=== PATIENT | female | born 1970 | race Caucasian/White ===

== ENCOUNTER 2019-06-10 19:36 | Inpatient (IN) | payer SELFPAY ==
[~2019-06-10] VITALS: Ht 152.4 cm; Wt 54.4 kg
[2019-06-10] MEDS ORDERED: PANTOPRAZOLE 40 MG 10ML VIAL IV ONE (19:39)
[2019-06-10] MEDS ORDERED: ONDANSETRON HCL INJ 2MG/ML 2ML 2 MG/ML VIAL IV ONE (19:39)
[2019-06-10] MEDS ORDERED: MULTIVITAMINS- 12 INJECTION 10 ML, FOLIC ACID MDV 5 MG, THIAMINE HCL INJ 100 MG in SODI... IV ONE (19:45)
[2019-06-10] MEDS ORDERED: SODIUM CHLORIDE 0.9% 1000ML 1,000 ML IV SCH (19:45)
[2019-06-10] MEDS ORDERED: SODIUM CHLORIDE 0.9% 1000ML 1,000 ML ONE (19:50)
[2019-06-10 20:32] LABS: BASOPHILS # (AUTO) 0.1 (0.0-0.1); BASOPHILS % 0.5 % (0.0-1.0); HEMATOCRIT 48.2 % (34.2-44.1); HEMOGLOBIN 16.2 g/dL (12.0-16.0); LYMPHOCYTES # (AUTO) 1.2 (1.0-3.2); LYMPHOCYTES % 5.6 % (18.0-39.1); MEAN CORPUSCULAR HEMOGLOBIN 30.3 pg (28-32); MEAN CORPUSCULAR HGB CONC 33.6 g/dL (31-35); MEAN CORPUSCULAR VOLUME 90.3 fL (81-99); MONOCYTES # (AUTO) 0.8 (0.2-0.8); MONOCYTES % 3.4 % (4.4-11.3); NEUTROPHILS # (AUTO) 19.8 (2.1-6.9); PLATELET COUNT 393 x10e3/uL (140-360); RED BLOOD COUNT 5.34 x10e6/uL (3.6-5.1); RED CELL DISTRIBUTION WIDTH 12.8 % (11.7-14.4)
[2019-06-10] MEDS ORDERED: PROMETHAZINE HCL (IM) 25 MG/ML VIAL ONE (20:42)
[2019-06-10] MEDS ORDERED: PROMETHAZINE 25MG/ NS 50ML (IV) IV ONE (20:45)
[2019-06-10 20:53] LABS: ALBUMIN 4.5 g/dL (3.5-5.0); ALBUMIN/GLOBULIN RATIO 0.9 (0.8-2.0); ANION GAP 40.5 mmol/L (8-16); CALCIUM 10.2 mg/dL (8.4-10.2); CREATININE, SERUM 1.2 mg/dL (0.57-1.11); MAGNESIUM 2.9 MG/DL (1.3-2.1); POTASSIUM 3.5 mmol/L (3.5-5.1)
[2019-06-10 21:11] LABS: INR 0.92; PROTHROMBIN TIME 12.8 seconds (11.9-14.5)
[2019-06-10 21:12] LABS: PARTIAL THROMBOPLASTIN TIME 24.7 seconds (23.8-35.5)
[2019-06-10] MEDS ORDERED: ONDANSETRON HCL INJ 2MG/ML 2ML 2 MG/ML VIAL IV PRN (22:45)
[2019-06-10 23:12] LABS: CLARITY,URINE CLOUDY (CLEAR); COLOR,URINE YELLOW (YELLOW)
[2019-06-10 23:13] LABS: BILIRUBIN,URINE NEGATIVE (NEGATIVE); KETONES,URINE 2+ (NEGATIVE); LEUKOCYTE ESTERASE ,URINE NEGATIVE (NEGATIVE); NITRITE,URINE NEGATIVE (NEGATIVE); PROTEIN,URINE DIPSTICK 2+ (NEGATIVE); URINE UROBILINOGEN 0.2 mg/dL (0.2 - 1)
[2019-06-10 23:25] LABS: BACTERIA,URINE MANY /HPF; EPITHELIAL CELLS,URINE FEW /LPF
[2019-06-11] VITALS (15 sets, daily range): BP systolic 122–140; BP diastolic 62–88
--- NOTE | 2019-06-11 00:11 | Diagnostic Imaging Report ---
EXAM: CT Abdomen and Pelvis WITH contrast INDICATION: lower abd pain, Nausea and vomiting COMPARISON: None. TECHNIQUE: Abdomen and pelvis were scanned utilizing a multidetector helical scanner from the lung base to the pubic symphysis after administration of IV contrast. Coronal and sagittal reformations were obtained. Routine protocol was performed. Scan was performed when during portal venous phase. IV CONTRAST: 100 mL of Isovue 370 ORAL CONTRAST: None COMPLICATIONS: None RADIATION DOSE: Total DLP: 176 mGy*cm Estimated effective dose: (DLP x 0.015 x size factor) mSv CTDIvol has been reviewed. It is below the limits set by the Radiation Protocol Committee (RPC). Dose modulation, iterative reconstruction, and/or weight based adjustment of the mA/kV was utilized to reduce the radiation dose to as low as reasonably achievable. FINDINGS: LINES and TUBES: None. LOWER THORAX: Unremarkable HEPATOBILIARY: The liver is diffuse hypodense compared to the spleen, consistent with diffuse hepatic steatosis. No focal hepatic lesions. No biliary ductal dilation. GALLBLADDER: No radio-opaque stones or sludge. No wall thickening. SPLEEN: No splenomegaly. PANCREAS: No focal masses or ductal dilatation. ADRENALS: No adrenal nodules KIDNEYS/URETERS: Kidneys enhance symmetrically. No hydronephrosis. No cystic or solid mass lesions. No stones. GI TRACT: Mild distal esophageal wall thickening. No abnormal distention, wall thickening, or evidence of bowel obstruction. There are diverticula within the colon without evidence of diverticulitis. Appendix is normal. PELVIC ORGANS/BLADDER: The uterus is absent. No adnexal masses. Follicles in the ovaries. LYMPH NODES: No lymphadenopathy. VESSELS: Unremarkable. PERITONEUM / RETROPERITONEUM: No free air or fluid. BONES: Unremarkable. SOFT TISSUES: Unremarkable. IMPRESSION: 1. No acute CT abnormalities in the abdomen or pelvis. 2. Hepatic steatosis. 3. Colonic diverticulosis without diverticulitis. Signed by: Adrien Jenkins DO on 06/11/2019 12:08 AM
[2019-06-11] MEDS ORDERED: PROMETHAZINE 25MG/SOD CHL 0.9% 50 ML ONE (00:55)
[2019-06-11] MEDS: SODIUM CHLORIDE 0.9% 1000ML 1,000 ML IV SCH ×3 (01:01→14:37)
[2019-06-11] MEDS: CHLORDIAZEPOXIDE HCL 25 MG CAP PO SCH ×4 (01:01→17:03)
[2019-06-11] MEDS ORDERED: PROMETHAZINE 25MG/ NS 50ML (IV) IV ONE (01:15)
[2019-06-11] MEDS ORDERED: LISINOPRIL10 MG PO (01:41)
[2019-06-11] MEDS ORDERED: SODIUM CHLORIDE 0.9% 50ML 50 ML ONE (03:34)
[2019-06-11] MEDS ORDERED: IOPAMIDOL 370 MG/ML 200 ML INFUS..BTL INJ ONE (03:34)
[2019-06-11 05:27] LABS: BASOPHILS # (AUTO) 0.1 (0.0-0.1); BASOPHILS % 0.3 % (0.0-1.0); HEMATOCRIT 36.1 % (34.2-44.1); LYMPHOCYTES # (AUTO) 2.2 (1.0-3.2); MEAN CORPUSCULAR HEMOGLOBIN 29.6 pg (28-32); MEAN CORPUSCULAR HGB CONC 32.7 g/dL (31-35); MEAN CORPUSCULAR VOLUME 90.7 fL (81-99); MONOCYTES # (AUTO) 1.4 (0.2-0.8); MONOCYTES % 9.5 % (4.4-11.3); NEUTROPHILS # (AUTO) 10.8 (2.1-6.9); NEUTROPHILS % 74.8 % (38.7-80.0); PLATELET COUNT 268 x10e3/uL (140-360); RED BLOOD COUNT 3.98 x10e6/uL (3.6-5.1); RED CELL DISTRIBUTION WIDTH 12.8 % (11.7-14.4)
[2019-06-11 05:31] LABS: HEMOGLOBIN 11.8 g/dL (12.0-16.0)
[2019-06-11 05:54] LABS: ALANINE AMINOTRANSFERASE 16 IU/L (0-55); ALBUMIN 3.4 g/dL (3.5-5.0); ALBUMIN/GLOBULIN RATIO 1.1 (0.8-2.0); ALKALINE PHOSPHATASE 66 IU/L (40-150); ANION GAP 17.1 mmol/L (8-16); BLOOD UREA NITROGEN 12 mg/dL (7-26); BUN/CREATININE RATIO 16 (6-25); CALCIUM 8.4 mg/dL (8.4-10.2); CARBON DIOXIDE 27 mmol/L (22-29); CHLORIDE 99 mmol/L (98-107); CREATININE, SERUM 0.77 mg/dL (0.57-1.11); EST GLOMERULAR FILTRATION RATE > 60 ML/MIN (60-); GLUCOSE 98 mg/dL (74-118); POTASSIUM 4.1 mmol/L (3.5-5.1); SODIUM 139 mmol/L (136-145)
[2019-06-11 06:22] LABS: AMYLASE 393 U/L (25-125); LIPASE 11 U/L (8-78)
[2019-06-11] MEDS ORDERED: ONDANSETRON HCL INJ 2MG/ML 2ML 2 MG/ML VIAL IV PRN ×2 (06:45→07:15)
[2019-06-11] MEDS ORDERED: ZOLPIDEM TARTRATE 10 MG TAB PO PRN (07:00)
[2019-06-11] MEDS ORDERED: ACETAMINOPHEN 325 MG TAB PO PRN (07:15)
[2019-06-11] MEDS ORDERED: LORAZEPAM INJ 2 MG/ML VIAL IV PRN (07:15)
[2019-06-11] MEDS ORDERED: HYDRALAZINE HCL 20 MG/ML VIAL IV PRN (07:15)
[2019-06-11] MEDS ORDERED: LORAZEPAM INJ 2 MG/ML VIAL IV ONE (07:30)
[2019-06-11] MEDS: PIPER-TAZ 3.375 GM 50 ML IV SCH ×3 (08:01→20:41)
[2019-06-11] MEDS: PANTOPRAZOLE 40 MG 10ML VIAL IV SCH (08:01)
[2019-06-11] MEDS: LISINOPRIL 10 MG TAB PO SCH (08:01)
--- NOTE | 2019-06-11 08:35 | Diagnostic Imaging Report ---
Chest, portable AP view History: Leukocytosis Comparison: No comparisons available for review IMPRESSION: The heart is within normal limits size. The mediastinal and hilar contours are unremarkable. Left basilar atelectasis is present. No focal consolidation, pleural effusion, or pneumothorax. Signed by: Glenn Salazar MD on 06/11/2019 8:32 AM
--- NOTE | 2019-06-11 11:30 | NUR ---
Pt had poor appetite, but tolerating some clear liquids at this time. Orders given by Nayana BUENROSTRO to transfer to medical surgical floor with telemetry. Patient transferred to room 205. Upon transfer patient, pt complained of "acid reflux pain" and requesting stronger medication than Pepcid. Muna FORD assuming care notified of patient's complaint.
--- NOTE | 2019-06-11 11:45 | NUR ---
RCD PT FROM ICU BY BED PT IS ALERT AND ORIENTED VITALS CHECKED PT RESTING ON BED ,BED LOW AND LOCKED CALL LIGHT IN REACH
--- NOTE | 2019-06-11 13:45 | Consultation ---
DATE OF CONSULTATION: Pulmonary Critical Care Consultation CHIEF COMPLAINT: Vomiting, dehydration and acidosis. HISTORY OF PRESENT ILLNESS: The patient is a 49-year-old woman. She came in with some abdominal pain and vomiting. She reported drinking a large quantity of wine over the past several days. She also reports drinking on a chronic basis. She denies and ulcers or prior gastrointestinal problems. She does not complain of fever. PAST SURGICAL HISTORY: Status post hysterectomy. PAST MEDICAL HISTORY: 1. Hypertension. 2. No prior history of gastrointestinal disease. SOCIAL HISTORY: The patient is a daily drinker. FAMILY HISTORY: Family history is noncontributory. ALLERGIES: THERE ARE NO KNOWN DRUG ALLERGIES. REVIEW OF SYSTEMS: The patient has no fever. She has no headache. She is not complaining of any neck pain. She has no chest pain. She has no difficulty breathing. She has no cough. She does have some abdominal pain. She did have some vomiting, although this has subsided. She has no leg edema. She has no focal neurological complaints. PHYSICAL EXAMINATION: VITAL SIGNS: The patient is afebrile. The blood pressure is 138/83 and the saturation is 97%. The respiratory rate is 16 and the pulse is 108. HEENT: Shows no facial swelling or erythema. CARDIAC: Reveals regular rate and rhythm with normal S1, S2. There are no murmurs or rubs. LUNGS: Auscultation of lungs reveals clear breath sounds bilaterally. There is no wheezing. ABDOMEN: Soft. There is some mild epigastric tenderness. There is no rebound or guarding. EXTREMITIES: Show no leg edema or calf tenderness. NEUROLOGIC: Shows no focal neurological abnormalities. RADIOGRAPHIC DATA: CT scan of the abdomen shows no acute changes. There is some diverticulosis. She also has some hepatic steatosis. LABORATORY DATA: The electrolytes on admission showed a BUN to creatinine ratio of 16 to 1.2 with a carbon dioxide of 15 and a chloride of 87. The patient had an anion gap of 23. This has improved. Her white blood cell count has decreased from 22 to 14.4 and her hemoglobin has decreased from 16.2 to 11.8. The platelet count is 268. Coagulations parameters are normal. The urinalysis shows a pH of 5.5 with a specific gravity of 1.030. There are 10 to 20 white blood cells. IMPRESSION: 1. Alcoholic ketoacidosis. 2. Acute kidney injury. 3. Leukocytosis. 4. Chronic alcoholism. PLAN: 1. Continue IV hydration. 2. Replete thiamine and B12 folic acid. 3. Librium for delirium tremens prophylaxis. 4. Probable transfer to the medical [facility] today. MD TORREY Burks/KATHERIN /[id number]
--- NOTE | 2019-06-11 13:55 | Diagnostic Imaging Report ---
EXAM: US ABDOMEN COMPLETE INDICATION: Vomiting, elevated amylase. COMPARISON: CT abdomen/pelvis 06/10/2019. TECHNIQUE: Transverse and longitudinal lyles scale and color doppler sonographic images of the abdomen were obtained. FINDINGS: LIVER 14.6 cm in the right midclavicular line. Increased echogenicity of the liver with normal contour, no masses. SPLEEN 8.3 cm in maximum diameter. Normal echogenicity, no masses. GALLBLADDER No gallbladder wall thickening, distension, stone, or pericholecystic fluid. Negative reported sonographic Navarrete's sign. BILE DUCTS No intra nor extra-hepatic biliary dilation. Common bile duct measures 0.2 cm PANCREAS: Visualized portions are unremarkable. RIGHT KIDNEY: 10.9 cm Echogenicity: Normal Collecting System: No hydronephrosis Stones: None Cyst/Mass: None LEFT KIDNEY: 9.3 cm Echogenicity: Normal Collecting System: No hydronephrosis Stones: None Cyst/Mass: None VESSELS: Aorta: Visualized portions are within normal size limits Inferior Vena Cava: Visualized portions are normal Main Portal Vein: 0.8 cm, normal size with hepatopetal flow. FREE FLUID: None IMPRESSION: Hepatic steatosis. Signed by: Dr. Adrián Houston MD on 06/11/2019 1:51 PM
--- NOTE | 2019-06-11 17:14 | NUR ---
GAVE PACKET OF INFORMATION WITH [facility] [employer] FOR ASSISTANCE WITH LOW TO NO INCOME TO PATIENT. RESOURCES THAT PATIENT MAY BE ABLE TO FOLLOW UP UPON DISCHARGE. PT EDUCATED ON EACH RESOURCE AND UNDERSTANDING HOW TO FOLLOW UP TO SEE IF QUALIFIED FOR EACH RESOURCE.
--- NOTE | 2019-06-11 18:41 | NUR ---
PT RESTING ON BED BED SIDE REPORT GIVEN TO ONCOMING NURSE
[2019-06-12 00:21] VITALS: BP 141/77
[2019-06-12] MEDS: CHLORDIAZEPOXIDE HCL 25 MG CAP PO SCH ×3 (00:31→12:00)
[2019-06-12] MEDS: SODIUM CHLORIDE 0.9% 1000ML 1,000 ML IV SCH ×3 (00:31→14:37)
[2019-06-12] MEDS: PIPER-TAZ 3.375 GM 50 ML IV SCH ×3 (02:17→14:00)
[2019-06-12 05:13] LABS: BASOPHILS # (AUTO) 0.1 (0.0-0.1); BASOPHILS % 0.6 % (0.0-1.0); EOSINOPHILS % 0.4 % (0.0-6.0); HEMATOCRIT 34.8 % (34.2-44.1); HEMOGLOBIN 11.5 g/dL (12.0-16.0); LYMPHOCYTES # (AUTO) 1.6 (1.0-3.2); LYMPHOCYTES % 19.8 % (18.0-39.1); MEAN CORPUSCULAR HEMOGLOBIN 30.3 pg (28-32); MEAN CORPUSCULAR VOLUME 91.8 fL (81-99); MONOCYTES # (AUTO) 0.6 (0.2-0.8); MONOCYTES % 7.1 % (4.4-11.3); NEUTROPHILS # (AUTO) 5.8 (2.1-6.9); PLATELET COUNT 210 x10e3/uL (140-360); RED BLOOD COUNT 3.79 x10e6/uL (3.6-5.1); RED CELL DISTRIBUTION WIDTH 12.6 % (11.7-14.4)
[2019-06-12 05:37] LABS: ALANINE AMINOTRANSFERASE 14 IU/L (0-55); ALBUMIN 2.9 g/dL (3.5-5.0); ALKALINE PHOSPHATASE 58 IU/L (40-150); AMYLASE 119 U/L (25-125); BLOOD UREA NITROGEN 5 mg/dL (7-26); BUN/CREATININE RATIO 7 (6-25); CALCIUM 8.6 mg/dL (8.4-10.2); CARBON DIOXIDE 27 mmol/L (22-29); CHLORIDE 100 mmol/L (98-107); CREATININE, SERUM 0.67 mg/dL (0.57-1.11); EST GLOMERULAR FILTRATION RATE > 60 ML/MIN (60-); GLUCOSE 86 mg/dL (74-118); MAGNESIUM 1.9 MG/DL (1.3-2.1); SODIUM 138 mmol/L (136-145)
[2019-06-12] MEDS ORDERED: CHLORDIAZEPOXID25 MG PO (05:51)
[2019-06-12] MEDS ORDERED: PANTOPRAZOLE SO40 MG PO (05:51)
[2019-06-12] MEDS ORDERED: ZOFRAN4 MG PO (05:51)
[2019-06-12 06:00] VITALS: BP 140/78
[2019-06-12 06:09] LABS: ANION GAP 14.3 mmol/L (8-16); POTASSIUM 3.3 mmol/L (3.5-5.1)
[2019-06-12] MEDS ORDERED: POTASSIUM CHLORIDE 20 MEQ TAB CR PO STA (06:18)
--- NOTE | 2019-06-12 07:00 | NUR ---
RCD PT AT BED PT IS ALERT AND ORIENTED PT RESTING ON BED IV PATENT BY SALINE FLUSH BED LOW AND LOCKED CALL LIGHT IN REACH
[2019-06-12 08:17] VITALS: BP 154/82
[2019-06-12] MEDS: PANTOPRAZOLE 40 MG 10ML VIAL IV SCH (08:54)
[2019-06-12] MEDS: LISINOPRIL 10 MG TAB PO SCH (08:55)
[2019-06-12] MEDS ORDERED: THIAMINE HCL INJ 100 MG in SODIUM CHLORIDE 0.9% 50ML 50 ML IV SCH (09:00)
[2019-06-12] MEDS ORDERED: FOLIC ACID 1 MG TAB PO SCH (09:00)
[2019-06-12 10:00] VITALS: BP 154/82
[2019-06-12 12:16] VITALS: BP 166/81
--- NOTE | 2019-06-12 12:30 | NUR ---
AC TO [facility] BUENROSTRO PAGED TO DR BUSTAMANTE TO GET THE DISCHARGE APPROVAL
--- NOTE | 2019-06-12 13:25 | Diagnostic Imaging Report ---
Hepatobiliary Scan with Gallbladder Ejection Fraction Clinical information: Nausea and vomiting Technique: Following intravenous administration of 5.8 millicuries of Tc-99m mebrofenin, dynamic images of the abdomen in the anterior projection were obtained through 30 minutes. Sincalide (CCK analog) 1.1 micrograms was administered intravenously over 30 minutes with additional imaging for determination of gallbladder ejection fraction. Discussion: Perfusion of the liver is normal. Extraction of tracer by the liver parenchyma is normal. Tracer appears promptly within the biliary tract. The gallbladder begins to fill by 5 minutes post injection of tracer and fills adequately. Tracer is seen in the small bowel by 10 minutes. The gallbladder ejection fraction with sincalide is 36% (normal greater than 40%). Impression: 1. Filling of the gallbladder excludes acute cystic duct obstruction/acute cholecystitis. 2. The decreased gallbladder ejection fraction of 36% supports the clinical diagnosis of chronic cholecystitis/gallbladder dyskinesia. Signed by: Dr. Chiqui Pagan M.D. on 06/12/2019 1:21 PM
--- NOTE | 2019-06-12 14:30 | NUR ---
PAGED DR BUSTAMANTE AGAIN AND TALKED REGARDING DISCHARGE GOT THE DISCHARGE APPROVAL
--- NOTE | 2019-06-12 14:35 | NUR ---
PAGED AND TALKED ANNE-MARIE DR DIANNA PRASAD TO DC THE PT GOT THE DISCHARGE ORDER
--- NOTE | 2019-06-12 15:06 | NUR ---
PATIENT WENT HOME IN SAFE CONDITION WITH HER DAUGHTER
--- NOTE | 2019-06-14 01:30 | Discharge Summary ---
ADMISSION DIAGNOSES: EtOH abuse with intoxication, hypertension, anxiety, acute kidney injury, urinary tract infection, present on admission. DISCHARGE DIAGNOSES: EtOH abuse with intoxication, hypertension, anxiety, acute kidney injury, urinary tract infection, present on admission, rule out urinary tract infection. HISTORY: Hypertension, anxiety, EtOH abuse. SURGICAL HISTORY: Hysterectomy. FAMILY HISTORY: The patient's father and mother had diabetes. The patient's mother and father had a stroke. SOCIAL HISTORY: The patient admits to alcohol use. HOSPITAL COURSE: A 49-year-old female admits with complaints of epigastric abdominal pain, vomiting, and palpitations that began last night after drinking 2 bottles of Chardonnay. She admits with a history of alcohol abuse and so she quit for 1 month prior to beginning to drink 3 days ago again. She denies fever and diarrhea. On admission, her alcohol level was 194.6. She was started on Librium, lorazepam, given a banana bag, and admitted to the ICU. CT of the abdomen and pelvis showed no acute abnormality. Hepatic steatosis. Ultrasound of the abdomen showed hepatic steatosis. The patient continue to have nausea and vomiting, so a HIDA scan was ordered, which was negative. By the second day, the patient is tolerating diet and ready for discharge. She will discharge home with a prescription for Librium, Zofran, and Protonix. She will continue her home lisinopril. The patient understands discharge instructions and agrees to plan. Vital signs stable, the patient afebrile. Dictated by Nayana Gomez NP MD TIMBO Mcbride/MODL /[id number]
--- OUTSIDE RECORDS SUMMARY | 2019-06-18 11:33 | XMS REPORT ---
Author [facility] Address Unknown Phone Unavailable Care Team Providers Care Servicer [employer] Name Role Phone JANIE DONG Unavailable Unavailable Payers Payer Name Policy Type Policy Number Effective Date Expiration Date Problems This patient has no known problems. Allergies, Adverse Reactions, Alerts Allergy Name Allergy Type Status Severity Reaction(s) Onset Date Inactive Date Treating Clinician Comments No Known Allergies DA Active U 2018-07-28 00:00:00 No Known Allergies DA Active U 2018-04-01 00:00:00 No Known Allergies DA Active U 2017-01-08 00:00:00 No Known Allergies DA Active U 2013-12-03 00:00:00 Medications This patient has no known medications. Results Test Description Test Time Test Comments Text Results Atomic Results Result Comments HEPTOBILIARY W PHARM 2019-06-12 13:19:00 [facility] [address] [address] Patient Name: HAMMAD ELIZABETH MR #: [id number] : 1970 Age/Sex: 49/F Req #: [id number] Adm Physician: JANIE DONG MD Ordered by: Anne-Marie Cleveland ENVIRONMENTAL SOLUTIONS ENGINEER Report #: [id number] Location: MED/SURG2 Room/Bed: [facility] Procedure: [id number] NM/HEPTOBILIARY W PHARM Exam Date: 06/12/19 Exam Time: 929 REPORT STATUS: Signed Hepatobiliary Scan with Gallbladder Ejection Fraction Clinical information: Nausea and vomiting Technique: Following intravenous administration of 5.8 millicuries of Tc-99m mebrofenin, dynamic images of the abdomen in the anterior projection were obtained through 30 minutes. Sincalide (CCK analog) 1.1 micrograms was administered intravenously over 30 minutes with additional imaging for determination of gallbladder ejection fraction. Discussion: Perfusion of the liver is normal. Extraction of tracer by the liver parenchyma is normal. Tracer appears promptly within the biliary tract. The gallbladder begins to fill by 5 minut es post injection of tracer and fills adequately. Tracer is seen in the small bowel by 10 minutes. The gallbladder ejection fraction with sincalide is 36% (normal greater than 40%). Impression: 1. Filling of the gallbladder excludes acute cystic duct obstruction/acute cholecystitis. 2. The decreased gallbladder ejection fraction of 36% supports the clinical diagnosis of chronic cholecystitis/gallbladder dyskinesia. Signed by: Dr. Evelin Pagan M.D. on 06/12/2019 1:21 PM Dictated By: EVELIN PAGAN MD 1321 Transcribed By: DB on 06/12/19 1321 COPY TO: ANNE-MARIE C[place]AND ENVIRONMENTAL SOLUTIONS ENGINEER US ABDOMEN COMPLETE 2019-06-11 13:48:[address] [address] Patient Name: HAMMAD ELIZABETH MR #: [id number] : 1970 Age/Sex: 49/F Req #: [id number] Adm Physician: JANIE DONG MD Ordered by: OSMANY BUSTAMANTE MD Report #: [id number] Location: MED/SURG2 Room/Bed: [facility] Procedure: [id number] US/US ABDOMEN COMPLETE Exam Date: 06/11/19 Exam Time: 1244 REPORT STATUS: Signed EXAM: US ABDOMEN COMPLETE INDICATION: Vomiting, elevated amylase. COMPARISON: CT abdomen/pelvis 06/10/2019. TECHNIQUE: Transverse and longitudinal lyles scale and color doppler sonographic images of the abdomen were obtained. FINDINGS: LIVER 14.6 cm in the right midclavicular line. Increased echogenicity of the liver with normal contour, no masses. SPLEEN 8.3 cm in maximum diameter. Normal echogenicity, no masses. GALLBLADDER No gallbladder wall thickening, distension, stone, or pericholecystic fluid. Negative reported sonographic Navarrete's sign. BILE DUCTS No intra nor extra-hepatic biliary dilation. Common bile duct measures 0.2 cm PANCREAS: Visualized portions are unremarkable. RIGHT KIDNEY: 10.9 cm Echogenicity: Normal Collecting System: No hydronephrosis Stones: None Cyst/Mass: None LEFT KIDNEY: 9.3 cm Echogenicity: Normal Collecting System: No hydronephrosis Stones: None Cyst/Mass: None VESSELS: Aorta: Visualized portions are within normal size limits Inferior Vena Cava: Visualized portions are normal Main Portal Vein: 0.8 cm, normal size with hepatopetal flow. FREE FLUID: None IMPRESSION: Hepatic steatosis. Signed by: Dr. Oren Huber MD on 06/11/2019 1:51 PM Dictated By: OREN HUBER MD 1356 Transcribed By: DB on 06/11/19 1351 COPY TO: OSMANY BUSTAMANTE MD CHEST SINGLE (PORTABLE) 2019-06-11 08:31:00 [address] [address] Patient Name: HAMMAD ELIZABETH MR #: [id number] : 1970 Age/Sex: 49/F Req #: [id number] Adm Physician: JANIE DONG MD Ordered by: OSMANY BUSTAMANTE MD Report #: [id number] Location: ICU Room/Bed: [place] [address] Procedure: [id number] DX/CHEST SINGLE (PORTABLE) Exam Date: 06/11/19 Exam Time: 809 REPORT STATUS: Signed Chest, portable AP view History: Leukocytosis Comparison: No comparisons available for review IMPRESSION: The heart is within normal limits size. The mediastinal and hilar contours are unremarkable. Left basilar atelectasis is present. No focal consolidation, pleural effusion, or pneumothorax. Signed by: Glenn Archuleta MD on 06/11/2019 8:32 AM Dictated By: GLENN ARCHULETA MD 1 Transcribed By: DB on 06/11/19831 COPY TO: OSMANY BUSTAMANTE MD CT ABDOMEN/PELVIS W 2019-06-11 00:05:00 [address] [address] Patient Name: HAMMAD ELIZABETH MR #: [id number] : 1970 Age/Sex: 49/F Req #: [id number] Adm Physician: JANIE DONG MD Ordered by: JOLYNN MANUEL ENVIRONMENTAL SOLUTIONS ENGINEER Report #: [id number] Location: [facility] Room/Bed: [address] [place] [address] Procedure: [id number] CT/CT ABDOMEN/PELVIS W Exam Date: 06/10/19 Exam Time: 7 REPORT STATUS: Signed EXAM: CT Abdomen and Pelvis WITH contrast INDICATIO N: lower abd pain, Nausea and vomiting COMPARISON: None. TECHNIQUE: Abdomen and pelvis were scanned utilizing a multidetector helical scanner from the lung base to the pubic symphysis after administration of IV contrast. Coronal and sagittal reformations were obtained. Routine protocol was performed. Scan was performed when during portal venous phase. IV CONTRAST: 100 mL of Isovue 370 ORAL CONTRAST: None COMPLICATIONS: None RADIATION DOSE: Total DLP: 176 mGy*cm Estimated effective dose: (DLP x 0.015 x size factor) mSv CTDIvol has been reviewed. It is below the limits set by the Radiation Protocol Committee (RPC). Dose modulation, iterative reconstruction, and/or weight based adjustment of the mA/kV was utilized to reduce the radiation dose to as low as reasonably achievable. FINDINGS: LINES and TUBES: None. LOWER THORAX: Unremarkable HEPATOBILIARY: The liver is diffuse hypodense compare d to the spleen, consistent with diffuse hepatic steatosis. No focal hepatic lesions. No biliary ductal dilation. GALLBLADDER: No radio-opaque stones or sludge. No wall thickening. SPLEEN: No splenomegaly. PANCREAS: No focal masses or ductal dilatation. ADRENALS: No adrenal nodules KIDNEYS/URETERS: Kidneys enhance symmetrically. No hydronephrosis. No cystic or solid mass lesions. No stones. GI TRACT: Mild distal esophageal wall thickening. No abnormal distention, wall thickening, or evidence of bowel obstruction. There are diverticula within the colon without evidence of diverticulitis. Appendix is normal. PELVIC ORGANS/BLADDER: The uterus is absent. No adnexal masses. Follicles in the ovaries. LYMPH NODES: No lymphadenopathy. VESSELS: Unremarkable. PERITONEUM / RETROPERITONEUM: No free air or fluid. BONES: Unremarkable. SOFT TISSUES: Unremarkable. IMPRESSION: 1. No acute CT abnormalities in the abdomen or pelvis. 2. Hepatic steatosis. 3. Colonic diverticulosis without diverticulitis. Signed by: Adrien Jenkins DO on 06/11/2019 12:08 AM Dictated By: ADRIEN JENKINS DO Transcribed By: DB on 06/11/197 COPY TO: JOLYNN MANUEL NP THYROID PROFILE W/TSH 2018-07-30 07:55:00 T3 UPTAKE (test code=T3UP) 34.0 % 30.0-40.0 T4 (THYROXINE) (test code=T4) 9.8 ug/dL 4.5-13.9 T7 (FREE THYROXINE INDEX) (test code=T7) 3.33 FTI 1.3-5.1 THYROID STIMULATING HORMONE (test code=TSH) 1.170 uIU/mL 0.36-3.74 TSH REFERENCE RANGES: EUTHYROID: 0.35 - 4.3 mIU/mL HYPO : > 5.5 mIU/mL HYPER : < 0.35 mIU/mL T4 [id number] 07:55:00* Test Item Value Reference Range Comments T4 FREE (test code=T4F) 1.16 ng/dL 0.76-1.46 BASIC METABOLIC [id number] 07:10:00* Test Item Value Reference Range Comments SODIUM (test code=NA) 140 mmol/L 136-145 POTASSIUM (test code=K) 3.7 mmol/L 3.5-5.1 CHLORIDE (test code=CL) 103.0 mmol/L 98-107 CARBON DIOXIDE (test code=CO2) 30.0 mmol/L 21-32 ANION GAP (test code=GAP) 10.7 10-20 GLUCOSE (test code=GLU) 104 mg/dL 74-106 BLOOD UREA NITROGEN (test code=BUN) 4 mg/dL 7-18 GLOMERULAR FILTRATION RATE (test code=GFR) > 60 mL/min >=60 Estimated GFR by using Modified MDRD formula.Chronic kidney disease is defined as either kidney damageor GFR <60 mL/min/1.73 m2 for >3 months. CREATININE (test code=CREAT) 0.40 mg/dL 0.55-1.02 Note change in reference range due to change in reagent. BUN/CREATININE RATIO (test code=BUN/CREA) 10.0 10-20 CALCIUM (test code=CA) 8.6 mg/dL 8.5-10.1 HEPATIC FUNCTION [id number] 07:10:00* Test Item Value Reference Range Comments TOTAL PROTEIN (test code=PROT) 6.3 gram/dL 6.4-8.2 ALBUMIN (test code=ALB) 3.1 g/dL 3.4-5.0 GLOBULIN (test code=GLOB) 3.2 gram/dL 2.7-4.2 ALBUMIN/GLOBULIN RATIO (test code=A/G) 1.0 0.75-1.50 BILIRUBIN TOTAL (test code=BILT) 0.60 mg/dL 0.0-1.0 BILIRUBIN DIRECT (test code=BILD) 0.16 mg/dL 0.0-0.20 SGOT/AST (test code=AST) 16 IUnit/L 15-37 SGPT/ALT (test code=ALT) 17 IUnit/L 12-78 ALKALINE PHOSPHATASE TOTAL (test code=ALKP) 62 IUnit/L 45-117 Note change in reference range due to change in reagent. [id number] 07:10:00* Test Item Value Reference Range Comments PHOSPHORUS (test code=PHOS) 3.1 mg/dL 2.5-4.9 [id number] 07:10:00* Test Item Value Reference Range Comments MAGNESIUM (test code=MAG) 1.8 mg/dL 1.8-2.4 [id number] 07:10:00* Test Item Value Reference Range Comments ACETAMINOPHEN (test code=ACET) < 10 mcg/mL 10-30 A RANGE OF 10-30 mcg/mL IS A THERAPEUTIC RANGE. TOXIC CONCENTRATIONS: >150 mcg/mL AT 4 HOURS AFTER INGESTION >=50 mcg/mL AT 12 HOURS AFTER INGESTION CBC W/AUTO [id number] 07:02:00* Test Item Value Reference Range Comments WHITE BLOOD CELL (test code=WBC) 6.2 K/mm3 4.5-12.5 RED BLOOD CELL (test code=RBC) 4.08 mill/mm3 3.7-5.2 HEMOGLOBIN (test code=HGB) 12.1 gram/dL 11.5-15.5 HEMATOCRIT (test code=HCT) 38.1 % 36.0-46.0 MEAN CELL VOLUME (test code=MCV) 93.4 fL 80-98 MEAN CELL HGB (test code=MCH) 29.7 picogram 27.0-33.0 MEAN CELL HGB CONCETRATION (test code=MCHC) 31.8 gram/dL 33.0-36.0 RED CELL DISTRIBUTION WIDTH (test code=RDW) 12.5 % 11.6-16.2 RED CELL DISTRIBUTION WIDTH SD (test code=RDW-SD) 43.2 fL 37.0-51.0 PLATELET COUNT (test code=PLT) 223 K/mm3 150-450 MEAN PLATELET VOLUME (test code=MPV) 9.6 fL 6.7-11.0 NEUTROPHIL % (test code=NT%) 56.0 % 39.0-69.0 IMMATURE GRANULOCYTE % (test code=IG%) 0.2 % 0.0-5.0 LYMPHOCYTE % (test code=LY%) 31.5 % 25.0-55.0 MONOCYTE % (test code=MO%) 8.6 % 0.0-10.0 EOSINOPHIL % (test code=EO%) 2.6 % 0.0-5.0 BASOPHIL % (test code=BA%) 1.1 % 0.0-1.0 NUCLEATED RBC % (test code=NRBC%) 0.0 % 0-0 NEUTROPHIL # (test code=NT#) 3.45 K/mm3 1.8-7.7 IMMATURE GRANULOCYTE # (test code=IG#) 0.01 x10 3/uL 0-0.03 LYMPHOCYTE # (test code=LY#) 1.94 K/mm3 1.0-5.0 MONOCYTE # (test code=MO#) 0.53 K/mm3 0-0.8 EOSINOPHIL # (test code=EO#) 0.16 K/mm3 0.0-0.5 BASOPHIL # (test code=BA#) 0.07 K/mm3 0.0-0.2 NUCLEATED RBC # (test code=NRBC#) 0.00 K/mm3 0.0-0.1 MANUAL DIFF REQUIRED (test code=MDIFF) NO BASIC METABOLIC [id number] 06:59:00* Test Item Value Reference Range Comments SODIUM (test code=NA) 140 mmol/L 136-145 POTASSIUM (test code=K) 3.7 mmol/L 3.5-5.1 CHLORIDE (test code=CL) 103.0 mmol/L 98-107 CARBON DIOXIDE (test code=CO2) mmol/L 21-32 ANION GAP (test code=GAP) 10-20 GLUCOSE (test code=GLU) mg/dL 74-106 BLOOD UREA NITROGEN (test code=BUN) mg/dL 7-18 GLOMERULAR FILTRATION RATE (test code=GFR) mL/min >=60 CREATININE (test code=CREAT) mg/dL 0.55-1.02 BUN/CREATININE RATIO (test code=BUN/CREA) 10-20 CALCIUM (test code=CA) mg/dL 8.5-10.1 HEPATIC FUNCTION [id number] 06:59:00* Test Item Value Reference Range Comments TOTAL PROTEIN (test code=PROT) gram/dL 6.4-8.2 ALBUMIN (test code=ALB) g/dL 3.4-5.0 GLOBULIN (test code=GLOB) gram/dL 2.7-4.2 ALBUMIN/GLOBULIN RATIO (test code=A/G) 0.75-1.50 BILIRUBIN TOTAL (test code=BILT) mg/dL 0.0-1.0 BILIRUBIN DIRECT (test code=BILD) mg/dL 0.0-0.20 SGOT/AST (test code=AST) IUnit/L 15-37 SGPT/ALT (test code=ALT) IUnit/L 12-78 ALKALINE PHOSPHATASE TOTAL (test code=ALKP) IUnit/L 45-117 [id number] 06:59:00* Test Item Value Reference Range Comments PHOSPHORUS (test code=PHOS) mg/dL 2.5-4.9 [id number] 06:59:00* Test Item Value Reference Range Comments MAGNESIUM (test code=MAG) mg/dL 1.8-2.4 [id number] 06:59:00* Test Item Value Reference Range Comments ACETAMINOPHEN (test code=ACET) mcg/mL 10-30 [id number] 08:50:00* Test Item Value Reference Range Comments PHOSPHORUS (test code=PHOS) 1.9 mg/dL 2.5-4.9 [id number] 08:50:00* Test Item Value Reference Range Comments MAGNESIUM (test code=MAG) 1.6 mg/dL 1.8-2.4 [id number] 08:47:00* Test Item Value Reference Range Comments PHOSPHORUS (test code=PHOS) mg/dL 2.5-4.9 [id number] 08:47:00* Test Item Value Reference Range Comments MAGNESIUM (test code=MAG) 1.6 mg/dL 1.8-2.4 [id number] 07:56:00* Test Item Value Reference Range Comments GLUBED (test code=GLUBED) 118 mg/dL 74-106 Performed by certified charge operator at [facility] COMPREHENSIVE METABOLIC [id number] 07:27:00* Test Item Value Reference Range Comments SODIUM (test code=NA) 133 mmol/L 136-145 RESULT VERIFIED BY REPEAT ANALYSIS POTASSIUM (test code=K) 2.9 mmol/L 3.5-5.1 Results called to [id number] by V.[email or web address] 07/29/18 0724Critical results verified and read back by Nurse? Y CHLORIDE (test code=CL) 95.0 mmol/L 98-107 CARBON DIOXIDE (test code=CO2) 20.0 mmol/L 21-32 ANION GAP (test code=GAP) 20.9 10-20 GLUCOSE (test code=GLU) 405 mg/dL 74-106 Results called to [id number] by V.[email or web address] 07/29/18 0723Critical results verified and read back by Nurse? Y BLOOD UREA NITROGEN (test code=BUN) 5 mg/dL 7-18 GLOMERULAR FILTRATION RATE (test code=GFR) > 60 mL/min >=60 Estimated GFR by using Modified MDRD formula.Chronic kidney disease is defined as either kidney damageor GFR <60 mL/min/1.73 m2 for >3 months. CREATININE (test code=CREAT) 0.60 mg/dL 0.55-1.02 Note change in reference range due to change in reagent. BUN/CREATININE RATIO (test code=BUN/CREA) 9.0 10-20 TOTAL PROTEIN (test code=PROT) 4.7 gram/dL 6.4-8.2 ALBUMIN (test code=ALB) 2.1 g/dL 3.4-5.0 GLOBULIN (test code=GLOB) 2.6 gram/dL 2.7-4.2 ALBUMIN/GLOBULIN RATIO (test code=A/G) 0.8 0.75-1.50 CALCIUM (test code=CA) 6.5 mg/dL 8.5-10.1 BILIRUBIN TOTAL (test code=BILT) 0.40 mg/dL 0.0-1.0 SGOT/AST (test code=AST) 13 IUnit/L 15-37 SGPT/ALT (test code=ALT) 13 IUnit/L 12-78 ALKALINE PHOSPHATASE TOTAL (test code=ALKP) 42 IUnit/L 45-117 Note change in reference range due to change in reagent. [id number] 07:27:00* Test Item Value Reference Range Comments ACETAMINOPHEN (test code=ACET) < 10 mcg/mL 10-30 A RANGE OF 10-30 mcg/mL IS A THERAPEUTIC RANGE. TOXIC CONCENTRATIONS: >150 mcg/mL AT 4 HOURS AFTER INGESTION >=50 mcg/mL AT 12 HOURS AFTER INGESTION CBC W/O [id number] 07:21:00* Test Item Value Reference Range Comments WHITE BLOOD CELL (test code=WBC) 10.0 K/mm3 4.5-12.5 RED BLOOD CELL (test code=RBC) 3.64 mill/mm3 3.7-5.2 HEMOGLOBIN (test code=HGB) 10.8 gram/dL 11.5-15.5 RESULT VERIFIED BY REPEAT ANALYSIS HEMATOCRIT (test code=HCT) 33.9 % 36.0-46.0 MEAN CELL VOLUME (test code=MCV) 93.1 fL 80-98 MEAN CELL HGB (test code=MCH) 29.7 picogram 27.0-33.0 MEAN CELL HGB CONCETRATION (test code=MCHC) 31.9 gram/dL 33.0-36.0 RED CELL DISTRIBUTION WIDTH (test code=RDW) 12.5 % 11.6-16.2 PLATELET COUNT (test code=PLT) 209 K/mm3 150-450 RESULT VERIFIED BY REPEAT ANALYSIS MEAN PLATELET VOLUME (test code=MPV) 10.1 fL 6.7-11.0 UR HCG [id number] 22:14:00* Test Item Value Reference Range Comments UR HCG QUAL (test code=HCGQLU) NEGATIVE This HCGQL test is NOT applicable for MALE patients.Check with nurse about probable order error.If Tumor Marker Test needed, nurse should order test "HCGTU"(Test #[id number]) [id number] 22:05:00* Test Item Value Reference Range Comments ACETAMINOPHEN (test code=ACET) 101.1 mcg/mL 10-30 A RANGE OF 10-30 mcg/mL IS A THERAPEUTIC RANGE. TOXIC CONCENTRATIONS: >150 mcg/mL AT 4 HOURS AFTER INGESTION >=50 mcg/mL AT 12 HOURS AFTER INGESTION [id number] 22:00:00* Test Item Value Reference Range Comments AMMONIA (test code=AMM) 27 umol/L 11-32 URINALYSIS [id number] 19:48:00* Test Item Value Reference Range Comments UA COLOR (test code=COLU) LIGHT YELLOW YELLOW UA APPEARANCE (test code=APPU) SLIGHTLY CLOUDY CLEAR UA GLUCOSE DIPSTICK (test code=DGLUU) NEGATIVE mg/dL NEGATIVE UA BILIRUBIN DIPSTICK (test code=BILU) NEGATIVE mg/dL NEGATIVE UA KETONE DIPSTICK (test code=KETU) 5 (Trace) mg/dL NEGATIVE UA SPECIFIC GRAVITY (test code=SGU) 1.017 1.001-1.035 UA BLOOD DIPSTICK (test code=PERNELL) 1+ (Small) NEGATIVE UA PH DIPSTICK (test code=LORRI) 5.0 5.0-8.0 UA PROTEIN DIPSTICK (test code=PROU) 30 (1+) mg/dL NEGATIVE UA UROBILINIOGEN DIPSTICK (test code=URO) NEGATIVE mg/dL NEGATIVE UA NITRITE DIPSTICK (test code=OSITO) NEGATIVE NEGATIVE UA LEUKOCYTE ESTERASE W REFLEX (test code=LEUUR) NEGATIVE NEGATIVE UA WBC (test code=WBCU) 0-5 #/HPF 0-5 UA RBC (test code=RBCU) 0-2 #/HPF 0-5 UA EPITHELIAL CELLS (test code=EPIU) MOD per HPF FEW UA BACTERIA (test code=BACU) FEW #/HPF NONE UA HYALINE CAST (test code=HYALU) 0-2 #/LPF 0-5 UA GRANULAR CAST (test code=GRANU) 6-10 #/LPF NONE UA MUCUS (test code=MUCU) FEW #/LPF FEW Urine Source? Clean CatchDRUGS OF ABUSE SCREEN [id number] 19:48:00* Test Item Value Reference Range Comments URN COCAINE (test code=COCAURN) NEGATIVE <300 ng/mL URN CANNABINOIDS (test code=CANNABURN) NEGATIVE <50 ng/mL URN AMPHETAMINE (test code=AMPHETURN) NEGATIVE <1000 ng/mL URN BARBITURATE (test code=BARBITURN) NEGATIVE <200 ng/mL URN BENZODIAZEPINE (test code=BENZOURN) NEGATIVE <200 ng/mL URN OPIATES (test code=OPIATURN) NEGATIVE <300 ng/mL URN PHENCYCLIDINE (PCP) (test code=PHENCURN) NEGATIVE <25 ng/mL URN METHADONE (test code=METHAURN) NEGATIVE <300 ng/mL Urine Source? Clean CatchURINALYSIS [id number] 19:26:00* Test Item Value Reference Range Comments UA COLOR (test code=COLU) LIGHT YELLOW YELLOW UA APPEARANCE (test code=APPU) SLIGHTLY CLOUDY CLEAR UA GLUCOSE DIPSTICK (test code=DGLUU) NEGATIVE mg/dL NEGATIVE UA BILIRUBIN DIPSTICK (test code=BILU) NEGATIVE mg/dL NEGATIVE UA KETONE DIPSTICK (test code=KETU) 5 (Trace) mg/dL NEGATIVE UA SPECIFIC GRAVITY (test code=SGU) 1.017 1.001-1.035 UA BLOOD DIPSTICK (test code=PERNELL) 1+ (Small) NEGATIVE UA PH DIPSTICK (test code=LORRI) 5.0 5.0-8.0 UA PROTEIN DIPSTICK (test code=PROU) 30 (1+) mg/dL NEGATIVE UA UROBILINIOGEN DIPSTICK (test code=URO) NEGATIVE mg/dL NEGATIVE UA NITRITE DIPSTICK (test code=OSITO) NEGATIVE NEGATIVE UA LEUKOCYTE ESTERASE W REFLEX (test code=LEUUR) NEGATIVE NEGATIVE UA WBC (test code=WBCU) 0-5 #/HPF 0-5 UA RBC (test code=RBCU) 0-2 #/HPF 0-5 UA EPITHELIAL CELLS (test code=EPIU) MOD per HPF FEW UA BACTERIA (test code=BACU) FEW #/HPF NONE UA HYALINE CAST (test code=HYALU) 0-2 #/LPF 0-5 UA GRANULAR CAST (test code=GRANU) 6-10 #/LPF NONE UA MUCUS (test code=MUCU) FEW #/LPF FEW Urine Source? Clean CatchDRUGS OF ABUSE SCREEN [id number] 19:26:00* Test Item Value Reference Range Comments URN COCAINE (test code=COCAURN) <300 ng/mL URN CANNABINOIDS (test code=CANNABURN) <50 ng/mL URN AMPHETAMINE (test code=AMPHETURN) <1000 ng/mL URN BARBITURATE (test code=BARBITURN) <200 ng/mL URN BENZODIAZEPINE (test code=BENZOURN) <200 ng/mL URN OPIATES (test code=OPIATURN) <300 ng/mL URN PHENCYCLIDINE (PCP) (test code=PHENCURN) <25 ng/mL URN METHADONE (test code=METHAURN) <300 ng/mL Urine Source? Clean CatchURINALYSIS [id number] 19:22:00* Test Item Value Reference Range Comments UA COLOR (test code=COLU) LIGHT YELLOW YELLOW UA APPEARANCE (test code=APPU) SLIGHTLY CLOUDY CLEAR UA GLUCOSE DIPSTICK (test code=DGLUU) NEGATIVE mg/dL NEGATIVE UA BILIRUBIN DIPSTICK (test code=BILU) NEGATIVE mg/dL NEGATIVE UA KETONE DIPSTICK (test code=KETU) 5 (Trace) mg/dL NEGATIVE UA SPECIFIC GRAVITY (test code=SGU) 1.017 1.001-1.035 UA BLOOD DIPSTICK (test code=PERNELL) 1+ (Small) NEGATIVE UA PH DIPSTICK (test code=LORRI) 5.0 5.0-8.0 UA PROTEIN DIPSTICK (test code=PROU) 30 (1+) mg/dL NEGATIVE UA UROBILINIOGEN DIPSTICK (test code=URO) NEGATIVE mg/dL NEGATIVE UA NITRITE DIPSTICK (test code=OSITO) NEGATIVE NEGATIVE UA LEUKOCYTE ESTERASE W REFLEX (test code=LEUUR) NEGATIVE NEGATIVE UA WBC (test code=WBCU) 0-5 #/HPF 0-5 UA RBC (test code=RBCU) 0-2 #/HPF 0-5 UA EPITHELIAL CELLS (test code=EPIU) MOD per HPF FEW Urine Source? Clean CatchDRUGS OF ABUSE SCREEN [id number] 19:22:00* Test Item Value Reference Range Comments URN COCAINE (test code=COCAURN) <300 ng/mL URN CANNABINOIDS (test code=CANNABURN) <50 ng/mL URN AMPHETAMINE (test code=AMPHETURN) <1000 ng/mL URN BARBITURATE (test code=BARBITURN) <200 ng/mL URN BENZODIAZEPINE (test code=BENZOURN) <200 ng/mL URN OPIATES (test code=OPIATURN) <300 ng/mL URN PHENCYCLIDINE (PCP) (test code=PHENCURN) <25 ng/mL URN METHADONE (test code=METHAURN) <300 ng/mL Urine Source? Clean CatchPROTHROMBIN [id number] 19:08:00* Test Item Value Reference Range Comments PROTHROMBIN TIME PATIENT (test code=PTP) 11.0 seconds 9.0-14.0 INTERNATIONAL NORMAL RATIO (test code=INR) 0.9 0.8-1.2 The therapeutic range for oral anticoagulant therapy formost indications is an international normalized ratio (INR)of between 2.0 and 3.0. The recommended therapeutic INRrange for various clinical situations is listed below: Clinical Situation INR range Pulmonary e mbolism treatment (2.0-3.0)Venous thrombosis treatmentVenous thrombosis prophylaxis (high risk surgery)Prevention of systemic embolism from: Acute myocardial infarction Valvular heart disease Atrial fibrillation Mechanical prosthetic heart valves (2.5-3.5) IS PATIENT ON ANTICOAGULANTS? NTHROMBOPLASTIN TIME [id number] 19:08:00* Test Item Value Reference Range Comments THROMBOPLASTIN TIME PARTIAL (test code=PTT) 27.8 seconds 25.0-36.5 IS PATIENT ON ANTICOAGULANTS? NURINALYSIS [id number] 19:02:00* Test Item Value Reference Range Comments UA COLOR (test code=COLU) LIGHT YELLOW YELLOW UA APPEARANCE (test code=APPU) SLIGHTLY CLOUDY CLEAR UA GLUCOSE DIPSTICK (test code=DGLUU) NEGATIVE mg/dL NEGATIVE UA BILIRUBIN DIPSTICK (test code=BILU) NEGATIVE mg/dL NEGATIVE UA KETONE DIPSTICK (test code=KETU) 5 (Trace) mg/dL NEGATIVE UA SPECIFIC GRAVITY (test code=SGU) 1.017 1.001-1.035 UA BLOOD DIPSTICK (test code=PERNELL) 1+ (Small) NEGATIVE UA PH DIPSTICK (test code=LORRI) 5.0 5.0-8.0 UA PROTEIN DIPSTICK (test code=PROU) 30 (1+) mg/dL NEGATIVE UA UROBILINIOGEN DIPSTICK (test code=URO) NEGATIVE mg/dL NEGATIVE UA NITRITE DIPSTICK (test code=OSITO) NEGATIVE NEGATIVE UA LEUKOCYTE ESTERASE W REFLEX (test code=LEUUR) NEGATIVE NEGATIVE UA WBC (test code=WBCU) per HPF 0-5 Urine Source? Clean CatchDRUGS OF ABUSE SCREEN [id number] 19:02:00* Test Item Value Reference Range Comments URN COCAINE (test code=COCAURN) <300 ng/mL URN CANNABINOIDS (test code=CANNABURN) <50 ng/mL URN AMPHETAMINE (test code=AMPHETURN) <1000 ng/mL URN BARBITURATE (test code=BARBITURN) <200 ng/mL URN BENZODIAZEPINE (test code=BENZOURN) <200 ng/mL URN OPIATES (test code=OPIATURN) <300 ng/mL URN PHENCYCLIDINE (PCP) (test code=PHENCURN) <25 ng/mL URN METHADONE (test code=METHAURN) <300 ng/mL Urine Source? Clean CatchBASIC METABOLIC [id number] 18:51:00* Test Item Value Reference Range Comments SODIUM (test code=NA) 139 mmol/L 136-145 POTASSIUM (test code=K) 3.5 mmol/L 3.5-5.1 CHLORIDE (test code=CL) 101.0 mmol/L 98-107 CARBON DIOXIDE (test code=CO2) 19.0 mmol/L 21-32 ANION GAP (test code=GAP) 22.5 10-20 GLUCOSE (test code=GLU) 135 mg/dL 74-106 BLOOD UREA NITROGEN (test code=BUN) 10 mg/dL 7-18 GLOMERULAR FILTRATION RATE (test code=GFR) > 60 mL/min >=60 Estimated GFR by using Modified MDRD formula.Chronic kidney disease is defined as either kidney damageor GFR <60 mL/min/1.73 m2 for >3 months. CREATININE (test code=CREAT) 0.70 mg/dL 0.55-1.02 Note change in reference range due to change in reagent. BUN/CREATININE RATIO (test code=BUN/CREA) 13.7 10-20 CALCIUM (test code=CA) 7.9 mg/dL 8.5-10.1 HEPATIC FUNCTION [id number] 18:51:00* Test Item Value Reference Range Comments TOTAL PROTEIN (test code=PROT) 8.7 gram/dL 6.4-8.2 ALBUMIN (test code=ALB) 3.8 g/dL 3.4-5.0 GLOBULIN (test code=GLOB) 4.9 gram/dL 2.7-4.2 ALBUMIN/GLOBULIN RATIO (test code=A/G) 0.8 0.75-1.50 BILIRUBIN TOTAL (test code=BILT) 0.30 mg/dL 0.0-1.0 BILIRUBIN DIRECT (test code=BILD) 0.12 mg/dL 0.0-0.20 SGOT/AST (test code=AST) 21 IUnit/L 15-37 SGPT/ALT (test code=ALT) 17 IUnit/L 12-78 ALKALINE PHOSPHATASE TOTAL (test code=ALKP) 82 IUnit/L 45-117 Note change in reference range due to change in reagent. [id number] 18:51:00* Test Item Value Reference Range Comments LIPASE (test code=LIP) 58 U/L 73.0-393.0 HCG SERUM [id number] 18:51:00* Test Item Value Reference Range Comments HCG SERUM QUAL (test code=HCGQL) NEGATIVE NEGATIVE This HCGQL test is NOT applicable for MALE patients.Check with nurse about probable order error.If Tumor Marker Test needed, nurse should order test "HCGTU"(Test #550.83091) [id number] 18:51:00* Test Item Value Reference Range Comments TROPONIN-I (test code=TROPI) <0.015 ng/mL 0-0.045 [id number] 18:51:00* Test Item Value Reference Range Comments ACETAMINOPHEN (test code=ACET) 236.0 mcg/mL 10-30 [facility] 1842Critical results verified and read back by Nurse? YA RANGE OF 10-30 mcg/mL IS A THERAPEUTIC RANGE. TOXIC CONCENTRATIONS: >150 mcg/mL AT 4 HOURS AFTER INGESTION >=50 mcg/mL AT 12 HOURS AFTER INGESTION [id number] 18:51:00* Test Item Value Reference Range Comments SALICYLATE (test code=VITOR) < 1.7 mg/dL 2.8-20.0 [id number] 18:51:00* Test Item Value Reference Range Comments ALCOHOL (test code=ALC) 209 mg/dL 0.0-3.0 INTERPRETIVE DATA NOTE: POSITIVE SCREENING RESULTS SHOULD BE CONSIDERED PRESUMPTIVE.WHEN COLLECTED FOR MEDICAL PURPOSES ONLY. SPECIMEN WILL NOTBE COLLECTED BY CHAIN OF CUSTODY.IF A CONFIRMATION OF POSITIVE RESULTS IS DESIRED, ACONFIRMATION TEST MUST BE REQUESTED BY THE PHYSICIAN AT ANADDITIONAL CHARGE TO THE PATIENT. BASIC METABOLIC [id number] 18:26:00* Test Item Value Reference Range Comments SODIUM (test code=NA) 139 mmol/L 136-145 POTASSIUM (test code=K) 3.5 mmol/L 3.5-5.1 CHLORIDE (test code=CL) 101.0 mmol/L 98-107 CARBON DIOXIDE (test code=CO2) mmol/L 21-32 ANION GAP (test code=GAP) 10-20 GLUCOSE (test code=GLU) mg/dL 74-106 BLOOD UREA NITROGEN (test code=BUN) mg/dL 7-18 GLOMERULAR FILTRATION RATE (test code=GFR) mL/min >=60 CREATININE (test code=CREAT) mg/dL 0.55-1.02 BUN/CREATININE RATIO (test code=BUN/CREA) 10-20 CALCIUM (test code=CA) mg/dL 8.5-10.1 HEPATIC FUNCTION [id number] 18:26:00* Test Item Value Reference Range Comments TOTAL PROTEIN (test code=PROT) gram/dL 6.4-8.2 ALBUMIN (test code=ALB) g/dL 3.4-5.0 GLOBULIN (test code=GLOB) gram/dL 2.7-4.2 ALBUMIN/GLOBULIN RATIO (test code=A/G) 0.75-1.50 BILIRUBIN TOTAL (test code=BILT) mg/dL 0.0-1.0 BILIRUBIN DIRECT (test code=BILD) mg/dL 0.0-0.20 SGOT/AST (test code=AST) IUnit/L 15-37 SGPT/ALT (test code=ALT) IUnit/L 12-78 ALKALINE PHOSPHATASE TOTAL (test code=ALKP) IUnit/L 45-117 [id number] 18:26:00* Test Item Value Reference Range Comments LIPASE (test code=LIP) U/L 73.0-393.0 HCG SERUM [id number] 18:26:00* Test Item Value Reference Range Comments HCG SERUM QUAL (test code=HCGQL) NEGATIVE NEGATIVE This HCGQL test is NOT applicable for MALE patients.Check with nurse about probable order error.If Tumor Marker Test needed, nurse should order test "HCGTU"(Test #550.14134) [id number] 18:26:00* Test Item Value Reference Range Comments TROPONIN-I (test code=TROPI) ng/mL 0-0.045 [id number] 18:26:00* Test Item Value Reference Range Comments ACETAMINOPHEN (test code=ACET) mcg/mL 10-30 [id number] 18:26:00* Test Item Value Reference Range Comments SALICYLATE (test code=VITOR) mg/dL 2.8-20.0 [id number] 18:26:00* Test Item Value Reference Range Comments ALCOHOL (test code=ALC) mg/dL 0-3 BASIC METABOLIC [id number] 18:25:00* Test Item Value Reference Range Comments SODIUM (test code=NA) 139 mmol/L 136-145 POTASSIUM (test code=K) 3.5 mmol/L 3.5-5.1 CHLORIDE (test code=CL) 101.0 mmol/L 98-107 CARBON DIOXIDE (test code=CO2) mmol/L 21-32 ANION GAP (test code=GAP) 10-20 GLUCOSE (test code=GLU) mg/dL 74-106 BLOOD UREA NITROGEN (test code=BUN) mg/dL 7-18 GLOMERULAR FILTRATION RATE (test code=GFR) mL/min >=60 CREATININE (test code=CREAT) mg/dL 0.55-1.02 BUN/CREATININE RATIO (test code=BUN/CREA) 10-20 CALCIUM (test code=CA) mg/dL 8.5-10.1 HEPATIC FUNCTION [id number] 18:25:00* Test Item Value Reference Range Comments TOTAL PROTEIN (test code=PROT) gram/dL 6.4-8.2 ALBUMIN (test code=ALB) g/dL 3.4-5.0 GLOBULIN (test code=GLOB) gram/dL 2.7-4.2 ALBUMIN/GLOBULIN RATIO (test code=A/G) 0.75-1.50 BILIRUBIN TOTAL (test code=BILT) mg/dL 0.0-1.0 BILIRUBIN DIRECT (test code=BILD) mg/dL 0.0-0.20 SGOT/AST (test code=AST) IUnit/L 15-37 SGPT/ALT (test code=ALT) IUnit/L 12-78 ALKALINE PHOSPHATASE TOTAL (test code=ALKP) IUnit/L 45-117 [id number] 18:25:00* Test Item Value Reference Range Comments LIPASE (test code=LIP) U/L 73.0-393.0 HCG SERUM [id number] 18:25:00* Test Item Value Reference Range Comments HCG SERUM QUAL (test code=HCGQL) NEGATIVE [id number] 18:25:00* Test Item Value Reference Range Comments TROPONIN-I (test code=TROPI) ng/mL 0-0.045 [id number] 18:25:00* Test Item Value Reference Range Comments ACETAMINOPHEN (test code=ACET) mcg/mL 10-30 [id number] 18:25:00* Test Item Value Reference Range Comments SALICYLATE (test code=VITOR) mg/dL 2.8-20.0 [id number] 18:25:00* Test Item Value Reference Range Comments ALCOHOL (test code=ALC) mg/dL 0-3 CBC W/O [id number] 18:18:00* Test Item Value Reference Range Comments WHITE BLOOD CELL (test code=WBC) 8.3 K/mm3 4.5-12.5 RED BLOOD CELL (test code=RBC) 4.86 mill/mm3 3.7-5.2 HEMOGLOBIN (test code=HGB) 14.6 gram/dL 11.5-15.5 HEMATOCRIT (test code=HCT) 45.3 % 36.0-46.0 MEAN CELL VOLUME (test code=MCV) 93.2 fL 80-98 MEAN CELL HGB (test code=MCH) 30.0 picogram 27.0-33.0 MEAN CELL HGB CONCETRATION (test code=MCHC) 32.2 gram/dL 33.0-36.0 RED CELL DISTRIBUTION WIDTH (test code=RDW) 12.5 % 11.6-16.2 PLATELET COUNT (test code=PLT) 321 K/mm3 150-450 MEAN PLATELET VOLUME (test code=MPV) 9.3 fL 6.7-11.0
== END 2019-06-12 15:06 | disposition home or self-care (01) | DRG 897 ==
LOC: ER 19:36 → ERHOLD 22:54 → ICU 06-11 01:30 → MED/SURG2 06-11 11:52
PROVIDERS: ADMIT Internal Medicine; ATTEND Internal Medicine
DX: F10.220 Alcohol dependence with intoxication, uncomplicated (principal); N39.0 Urinary tract infection, site not specified; N17.9 Acute kidney failure, unspecified; E87.2 Acidosis; F10.230 Alcohol dependence with withdrawal, uncomplicated; Y90.6 Blood alcohol level of 120-199 mg/100 ml; K76.0 Fatty (change of) liver, not elsewhere classified; F41.9 Anxiety disorder, unspecified; I10 Essential (primary) hypertension; D72.829 Elevated white blood cell count, unspecified; E87.6 Hypokalemia
CPT/HCPCS: 36415; 71045; 74177; 76700; 78227; 80053; 80320; 81001; 82150; 83690; 83735; 84702; 85025; 85610; 85730; 87086; 96374; 96375; 99284; A9537; J2060; J2405; J2543; J2550; J3411; J7030; Q9967

== ENCOUNTER 2019-07-21 02:53 | Inpatient (IN) | payer SELFPAY ==
[~2019-07-21] VITALS: Ht 152.4 cm; Wt 54.4 kg
[~2019-07-21 02:53] MED LIST: CHLORDIAZEPOXID25 MG PO; LISINOPRIL10 MG PO; PANTOPRAZOLE SO40 MG PO; ZOFRAN4 MG PO
[2019-07-21] MEDS ORDERED: SODIUM CHLORIDE 0.9% 1000ML 1,000 ML IV STA (03:02)
[2019-07-21] MEDS ORDERED: ONDANSETRON HCL INJ 2MG/ML 2ML 2 MG/ML VIAL IV STA ×2 (03:02→07:51)
[2019-07-21] MEDS ORDERED: SODIUM CHLORIDE 0.9% 1000ML 1,000 ML ONE ×2 (03:10→11:27)
[2019-07-21] MEDS ORDERED: DIAZEPAM INJ 5 MG/ML 2 ML IV ONE (03:30)
[2019-07-21] MEDS ORDERED: MULTIVITAMINS- 12 INJECTION 10 ML, FOLIC ACID MDV 5 MG, THIAMINE HCL INJ 100 MG in SODI... IV ONE (03:30)
[2019-07-21] MEDS ORDERED: LORAZEPAM INJ 2 MG/ML VIAL IV STA (03:42)
[2019-07-21] MEDS ORDERED: FAMOTIDINE 20 MG/2 ML VIAL IV STA (03:44)
[2019-07-21 03:49] LABS: CLARITY,URINE CLOUDY (CLEAR); COLOR,URINE YELLOW (YELLOW); LEUKOCYTE ESTERASE ,URINE NEGATIVE (NEGATIVE); NITRITE,URINE NEGATIVE (NEGATIVE); PROTEIN,URINE DIPSTICK 3+ (NEGATIVE)
[2019-07-21 03:50] LABS: AMPHETAMINES SCREEN,URINE NEGATIVE (NEGATIVE); BENZODIAZEPINES SCREEN,URINE NEGATIVE (NEGATIVE); BILIRUBIN,URINE NEGATIVE (NEGATIVE); KETONES,URINE 1+ (NEGATIVE); PHENCYCLIDINE SCREEN,URINE NEGATIVE (NEGATIVE); URINE UROBILINOGEN 0.2 mg/dL (0.2 - 1)
[2019-07-21] MEDS ORDERED: PROMETHAZINE HCL (IM) 25 MG/ML VIAL ONE (03:59)
[2019-07-21] MEDS ORDERED: PROMETHAZINE 25MG/ NS 50ML (IV) IV ONE (04:00)
[2019-07-21 04:02] LABS: BACTERIA,URINE MANY /HPF; EPITHELIAL CELLS,URINE FEW /LPF; WBC,URINE (MAN) 21-50 /HPF (0-5)
[2019-07-21 04:03] LABS: MUCUS,URINE FEW (RARE)
[2019-07-21 04:23] LABS: PREGNANCY TEST, URINE NEGATIVE (NEGATIVE)
[2019-07-21 04:35] LABS: BASOPHILS % 0.4 % (0.0-1.0); HEMATOCRIT 44.5 % (34.2-44.1); HEMOGLOBIN 15.2 g/dL (12.0-16.0); LYMPHOCYTES % 11.8 % (18.0-39.1); MEAN CORPUSCULAR HEMOGLOBIN 30.3 pg (28-32); MEAN CORPUSCULAR HGB CONC 34.2 g/dL (31-35); MEAN CORPUSCULAR VOLUME 88.8 fL (81-99); MONOCYTES # (AUTO) 0.9 (0.2-0.8); MONOCYTES % 10.8 % (4.4-11.3); NEUTROPHILS # (AUTO) 6.2 (2.1-6.9); PLATELET COUNT 385 x10e3/uL (140-360); RED BLOOD COUNT 5.01 x10e6/uL (3.6-5.1); RED CELL DISTRIBUTION WIDTH 12.7 % (11.7-14.4)
[2019-07-21 05:00] LABS: ALANINE AMINOTRANSFERASE 80 IU/L (0-55); ALBUMIN 4.1 g/dL (3.5-5.0); ALBUMIN/GLOBULIN RATIO 1.2 (0.8-2.0); ALKALINE PHOSPHATASE 79 IU/L (40-150); ANION GAP 30.9 mmol/L (8-16); BLOOD UREA NITROGEN 17 mg/dL (7-26); BUN/CREATININE RATIO 22 (6-25); CARBON DIOXIDE 26 mmol/L (22-29); CHLORIDE 82 mmol/L (98-107); CREATININE, SERUM 0.78 mg/dL (0.57-1.11); EST GLOMERULAR FILTRATION RATE > 60 ML/MIN (60-); GLUCOSE 114 mg/dL (74-118); SODIUM 136 mmol/L (136-145)
[2019-07-21 05:18] LABS: POTASSIUM 2.9 mmol/L (3.5-5.1)
[2019-07-21] MEDS ORDERED: POTASSIUM CHLORIDE 20 MEQ TAB CR PO STA (05:28)
[2019-07-21] MEDS ORDERED: CEFTRIAXONE SOD 1 GM/NS 50 ML 50 ML IV ONE (05:30)
[2019-07-21] MEDS ORDERED: POTASSIUM CHLORIDE 10MEQ/100ML 100 ML IV ONE (05:30)
[2019-07-21] MEDS ORDERED: ACETAMINOPHEN 325 MG TAB ONE (06:44)
[2019-07-21] MEDS ORDERED: ACETAMINOPHEN 325 MG TAB PO ONE (06:45)
[2019-07-21] MEDS ORDERED: LORAZEPAM INJ 2 MG/ML VIAL IV ONE (07:30)
[2019-07-21] MEDS ORDERED: LORAZEPAM INJ 2 MG/ML VIAL ONE (07:36)
[2019-07-21] MEDS: MAGNESIUM OXIDE 400 MG TAB PO SCH ×2 (07:36→09:20)
[2019-07-21] MEDS ORDERED: SODIUM CHLORIDE 0.9% 1000ML 1,000 ML IV SCH (11:03)
[2019-07-21] MEDS ORDERED: ONDANSETRON HCL INJ 2MG/ML 2ML 2 MG/ML VIAL IV PRN (13:30)
[2019-07-21] MEDS ORDERED: LORAZEPAM INJ 2 MG/ML VIAL IV PRN (13:30)
[2019-07-21] MEDS: SODIUM CHLORIDE 0.9% 1000ML 1,000 ML IV SCH ×2 (14:15→19:32)
[2019-07-21] MEDS: CEFTRIAXONE SOD 1 GM/NS 50 ML 50 ML IV SCH (14:15)
[2019-07-21] MEDS: CHLORDIAZEPOXIDE HCL 25 MG CAP PO SCH ×2 (14:33→23:31)
[2019-07-21 19:37] VITALS: BP 142/78
[2019-07-21 19:46] VITALS: BP 142/78
[2019-07-22] VITALS: BP 132/85
[2019-07-22] MEDS: SODIUM CHLORIDE 0.9% 1000ML 1,000 ML IV SCH (01:04)
[2019-07-22] MEDS ORDERED: ACETAMINOPHEN 325 MG TAB PO ONE (03:00)
[2019-07-22 04:24] VITALS: BP_SYST 124; BP_SYST 129; BP_DIAS 63; BP_DIAS 80
[2019-07-22 05:18] LABS: BASOPHILS % 0.4 % (0.0-1.0); EOSINOPHILS % 0.2 % (0.0-6.0); HEMATOCRIT 36.2 % (34.2-44.1); HEMOGLOBIN 11.9 g/dL (12.0-16.0); LYMPHOCYTES # (AUTO) 1.8 (1.0-3.2); LYMPHOCYTES % 16.7 % (18.0-39.1); MEAN CORPUSCULAR HEMOGLOBIN 30.4 pg (28-32); MEAN CORPUSCULAR HGB CONC 32.9 g/dL (31-35); MONOCYTES # (AUTO) 0.8 (0.2-0.8); MONOCYTES % 7.8 % (4.4-11.3); NEUTROPHILS % 74.2 % (38.7-80.0); PLATELET COUNT 280 x10e3/uL (140-360); RED BLOOD COUNT 3.92 x10e6/uL (3.6-5.1); RED CELL DISTRIBUTION WIDTH 12.8 % (11.7-14.4)
[2019-07-22 05:30] LABS: MEAN CORPUSCULAR VOLUME 92.3 fL (81-99)
[2019-07-22] MEDS: CHLORDIAZEPOXIDE HCL 25 MG CAP PO SCH ×3 (05:40→17:29)
[2019-07-22 05:46] LABS: ALANINE AMINOTRANSFERASE 45 IU/L (0-55); ALBUMIN/GLOBULIN RATIO 1.2 (0.8-2.0); ALKALINE PHOSPHATASE 55 IU/L (40-150); ANION GAP 12.8 mmol/L (8-16); BLOOD UREA NITROGEN 8 mg/dL (7-26); BUN/CREATININE RATIO 13 (6-25); CALCIUM 8.4 mg/dL (8.4-10.2); CARBON DIOXIDE 27 mmol/L (22-29); CHLORIDE 97 mmol/L (98-107); CREATININE, SERUM 0.61 mg/dL (0.57-1.11); EST GLOMERULAR FILTRATION RATE > 60 ML/MIN (60-); GLUCOSE 86 mg/dL (74-118); MAGNESIUM 1.7 MG/DL (1.3-2.1); SODIUM 134 mmol/L (136-145)
[2019-07-22 05:48] LABS: POTASSIUM 2.8 mmol/L (3.5-5.1)
[2019-07-22] MEDS ORDERED: POTASSIUM CHLORIDE 20 MEQ TAB CR PO ONE ×4 (06:15→12:00)
[2019-07-22 08:00] VITALS: BP 134/79
[2019-07-22] MEDS: MAGNESIUM OXIDE 400 MG TAB PO SCH (08:17)
[2019-07-22 09:35] LABS: ANION GAP 14.3 mmol/L (8-16); BLOOD UREA NITROGEN 8 mg/dL (7-26); BUN/CREATININE RATIO 13 (6-25); CALCIUM 8.7 mg/dL (8.4-10.2); CARBON DIOXIDE 26 mmol/L (22-29); CHLORIDE 96 mmol/L (98-107); CREATININE, SERUM 0.63 mg/dL (0.57-1.11); EST GLOMERULAR FILTRATION RATE > 60 ML/MIN (60-); GLUCOSE 156 mg/dL (74-118); POTASSIUM 3.3 mmol/L (3.5-5.1); SODIUM 133 mmol/L (136-145)
[2019-07-22 12:00] VITALS: BP 138/83
--- NOTE | 2019-07-22 12:10 | NUR ---
Consult for Dr Damon was called to 's office.
--- NOTE | 2019-07-22 12:12 | NUR ---
Pt is reporting unable to eat, painful swallowing, and cannot take any more oral medications. Called and reported to Dr May. He has changed pt to full admit and consulted Dr Serrato to evaluate.
[2019-07-22] MEDS: CEFTRIAXONE SOD 1 GM/NS 50 ML 50 ML IV SCH (13:26)
[2019-07-22 16:00] VITALS: BP 151/93
[2019-07-22 20:23] VITALS: BP 128/84
[2019-07-23 00:10] VITALS: BP 153/98
[2019-07-23] MEDS: CHLORDIAZEPOXIDE HCL 25 MG CAP PO SCH ×3 (00:10→12:32)
[2019-07-23 00:11] VITALS: BP 153/98
--- NOTE | 2019-07-23 03:07 | Consultation ---
DATE OF CONSULTATION: 07/22/2019 GI Consult Note CONSULTING PHYSICIAN: Bonilla May MD. REASON FOR CONSULT: Retrosternal chest pain, mostly during swallowing. HISTORY OF PRESENTING ILLNESS: A 49-year-old female who has alcohol dependence. She often indulgent to binge drinking. She got admitted through the emergency room day before yesterday with excessive alcohol ingestion. She after several rounds of alcoholic beverages, she started feeling sick to her stomach. She vomited couple of times. She started having some epigastric pain. This prompted her to seek medical assistance. She arrived by ambulance. In the emergency room, she was afebrile, hemodynamically stable. Alcohol level was found 253, urine drug screens were negative. Blood work otherwise unremarkable except hypokalemia. No lipase level was checked. No imaging studies done. Her urine test was positive for UTI. The patient got admitted in the hospital for IV hydration, supportive care and treatment for urinary tract infection. GI is being consulted because she started complaining about some midsternal chest pain especially during swallowing. She has never had any endoscopy. However, she complains about reflux problem at home. She takes antacids and Tums, Rolaids frequently. She does not follow up with any physician. PAST MEDICAL HISTORY: Hypertension. PAST SURGICAL HISTORY: None. FAMILY HISTORY: Noncontributory. SOCIAL HISTORY: No smoking, binge drinking. No use of any illicit drugs. ALLERGIES: NO KNOWN DRUG ALLERGIES. HOME MEDICATIONS: 1. Chlordiazepoxide. 2. Lisinopril. 3. Zofran. 4. Pantoprazole. INPATIENT MEDICATIONS: 1. Ceftriaxone. 2. Chlordiazepoxide. 3. Lorazepam. 4. Magnesium oxide. 5. Zofran. PHYSICAL EXAMINATION: VITAL SIGNS: Temperature 98.2, pulse 98, respirations 16, blood pressure 128/84, oxygen saturation 99% on room air. GENERAL: Not in any acute distress at this time. HEENT: Oral mucosa is moist, anicteric sclerae. CVS: S1-S2 regular. LUNGS: Bilaterally grossly clear. ABDOMEN: Soft. No palpable tenderness. No mass or hernia. Positive bowel sounds. EXTREMITIES: Warm. No leg edema. LABORATORY DATA: Sodium 136, potassium 2.9, chloride 82, bicarb 26, BUN 17, creatinine 0.78, glucose 114. Liver enzymes showed a total bilirubin 0.6, AST 40, ALT 80, alkaline phosphatase 79. WBC 10.22, hemoglobin 11.9, hematocrit 36.2, MCV 92.3, and platelet count 280. Blood alcohol level 253 on 07/21/2019. Urine toxicology negative. IMPRESSION: 1. Binge alcohol drinking that might result into alcoholic gastritis. 2. Gastroesophageal reflux disease, the patient present complaint of painful swallowing could be due to underlying reflux esophagitis. PLAN: Continue oral diet. Start PPI twice daily. Rest of the treatment as per primary team. We will follow her clinically. I have given the patient my business card. The patient will see me in my office within 1-2 weeks after discharge. I do not feel the need of any upper endoscopy to evaluate her upper GI symptoms. Sebastien Damon MD SA/KATHERIN /[id number]
--- NOTE | 2019-07-23 05:26 | NUR ---
CALLED AND SPOKE TO ANSWERING CUFF TURNER OF DR YAYA MANN, FOR CONSULT FOR ETOH ABUSE. Addendum: 07/23/19 at 0531 by Adelfo Woo RN CALLED AND SPOKE TO ANSWERING CUFF TURNER CLARENCE) OF DR YAYA MANN, FOR CONSULT FOR ETOH ABUSE.
--- NOTE | 2019-07-23 05:36 | NUR ---
IF PATIENT EAT BREAKFAST WELL, DR DOTSON NEED TO BE NOTIFIED TO GET AN ORDER FOR DISCHARGE.
[2019-07-23 05:40] VITALS: BP 136/62
[2019-07-23 05:50] LABS: ANION GAP 13.8 mmol/L (8-16); BLOOD UREA NITROGEN 8 mg/dL (7-26); BUN/CREATININE RATIO 14 (6-25); CALCIUM 8.9 mg/dL (8.4-10.2); CARBON DIOXIDE 27 mmol/L (22-29); CHLORIDE 101 mmol/L (98-107); CREATININE, SERUM 0.59 mg/dL (0.57-1.11); EST GLOMERULAR FILTRATION RATE > 60 ML/MIN (60-); GLUCOSE 101 mg/dL (74-118); POTASSIUM 3.8 mmol/L (3.5-5.1); SODIUM 138 mmol/L (136-145)
[2019-07-23] MEDS ORDERED: PANTOPRAZOLE SOD 40 MG TABEC PO SCH (07:30)
[2019-07-23 08:26] VITALS: BP 133/65
[2019-07-23] MEDS: MAGNESIUM OXIDE 400 MG TAB PO SCH (09:03)
--- NOTE | 2019-07-23 12:34 | NUR ---
REVIEWED DC INSTRUCTIONS WITH PT, VERBALIZED UNDERSTANDING. VS STABLE.
[2019-07-23 12:35] VITALS: BP 129/66
--- NOTE | 2019-08-01 01:41 | Discharge Summary ---
DISCHARGE DIAGNOSES: 1. Abdominal pain. 2. Alcohol abuse. 3. Hypokalemia. 4. Urinary tract infection. 5. Gastritis. HISTORY OF PRESENT ILLNESS AND HOSPITAL COURSE: See hospital chart for full details. The patient is a lady, who presented with alcohol toxicity, where she was noticed to have some chemical criteria for possible sepsis and due to the new criteria, the patient was admitted for sepsis rule out, which she was able to rule out for, but during her hospitalization she was given a banana bag, IV fluids, electrolyte replacement as well as evidence of UTIs, so she was placed on IV antibiotics. The following day, she started complaining of some abdominal pain, mostly mid epigastric that responded very well to Protonix. She was seen by GI, who offered to see her as an outpatient and felt like the patient was having gastritis secondary to alcohol abuse. At the time of discharge, she having no further abdominal pain, so she was sent home with proton pump inhibitor as well as a p.o. antibiotic for UTI and follow up with primary care physician in 1 to 2 weeks as well as GI. Please see hospital chart for full details. MD KLIEY Mahmood/KATHERIN /[id number]
== END 2019-07-23 13:30 | disposition home or self-care (01) | DRG 690 ==
LOC: ER 02:53 → ERHOLD 13:30 → IMCU 17:55 → OBSVTOIN 07-22 12:07
PROVIDERS: ADMIT Internal Medicine; ATTEND Internal Medicine
DX: N30.01 Acute cystitis with hematuria (principal); F10.220 Alcohol dependence with intoxication, uncomplicated; I10 Essential (primary) hypertension; E87.6 Hypokalemia; K21.0 Gastro-esophageal reflux disease with esophagitis; E86.0 Dehydration; K29.20 Alcoholic gastritis without bleeding; Y90.8 Blood alcohol level of 240 mg/100 ml or more
CPT/HCPCS: 36415; 80048; 80053; 80307; 80320; 81001; 81025; 83605; 83735; 85025; 87040; 93005; 99285; G0378; J0696; J2060; J2405; J2550; J3411; J7030

== ENCOUNTER 2019-08-07 14:20 | Inpatient (IN) | payer MEDICAID ==
[~2019-08-07] VITALS: Ht 152.4 cm; Wt 53.5 kg
[2019-08-07] MEDS ORDERED: SODIUM CHLORIDE 0.9% 1000ML 1,000 ML IV STA (14:23)
[2019-08-07] MEDS ORDERED: ONDANSETRON HCL INJ 2MG/ML 2ML 2 MG/ML VIAL IV STA (14:23)
[2019-08-07] MEDS ORDERED: PANTOPRAZOLE 40 MG 10ML VIAL IV STA (14:23)
[2019-08-07] MEDS ORDERED: MULTIVITAMINS- 12 INJECTION 10 ML, FOLIC ACID MDV 5 MG, THIAMINE HCL INJ 100 MG in SODI... IV ONE (15:15)
[2019-08-07 15:17] LABS: BASOPHILS # (AUTO) 0.1 (0.0-0.1); BASOPHILS % 0.5 % (0.0-1.0); HEMATOCRIT 45.1 % (34.2-44.1); HEMOGLOBIN 15.6 g/dL (12.0-16.0); LYMPHOCYTES # (AUTO) 1.3 (1.0-3.2); LYMPHOCYTES % 9.5 % (18.0-39.1); MEAN CORPUSCULAR HEMOGLOBIN 30.6 pg (28-32); MEAN CORPUSCULAR HGB CONC 34.6 g/dL (31-35); MEAN CORPUSCULAR VOLUME 88.4 fL (81-99); MONOCYTES # (AUTO) 0.6 (0.2-0.8); MONOCYTES % 4.6 % (4.4-11.3); NEUTROPHILS # (AUTO) 11.7 (2.1-6.9); NEUTROPHILS % 84.9 % (38.7-80.0); PLATELET COUNT 495 x10e3/uL (140-360); RED CELL DISTRIBUTION WIDTH 13.2 % (11.7-14.4)
[2019-08-07 15:24] LABS: INR 0.85; PROTHROMBIN TIME 12.1 seconds (11.9-14.5)
[2019-08-07 15:35] LABS: ALANINE AMINOTRANSFERASE 48 IU/L (0-55); ALBUMIN 4.4 g/dL (3.5-5.0); ALBUMIN/GLOBULIN RATIO 0.9 (0.8-2.0); ALKALINE PHOSPHATASE 90 IU/L (40-150); ANION GAP 25.7 mmol/L (8-16); BLOOD UREA NITROGEN 11 mg/dL (7-26); BUN/CREATININE RATIO 13 (6-25); CALCIUM 9.7 mg/dL (8.4-10.2); CARBON DIOXIDE 33 mmol/L (22-29); CHLORIDE 82 mmol/L (98-107); CREATINE KINASE 130 IU/L (29-168); CREATININE, SERUM 0.85 mg/dL (0.57-1.11); EST GLOMERULAR FILTRATION RATE > 60 ML/MIN (60-); GLUCOSE 130 mg/dL (74-118); LIPASE 17 U/L (8-78); MAGNESIUM 2.7 MG/DL (1.3-2.1); SODIUM 138 mmol/L (136-145)
[2019-08-07 15:45] LABS: POTASSIUM 2.7 mmol/L (3.5-5.1)
[2019-08-07 15:46] LABS: SALICYLATE < 5.0 mg/dL (0-30)
--- NOTE | 2019-08-07 15:56 | NUR ---
PHARMACY CALLED REGARDING ADDING POTTASSIUM TO "BANNANA BAG". PATIENT K+2.7. DR. MANRIQUE AWARE. THEY ARE MAKING IT RIGHT NOW
[2019-08-07] MEDS ORDERED: MULTIVITAMINS IV ONE ×5 (16:00)
[2019-08-07] MEDS ORDERED: FOLIC ACID IV ONE ×5 (16:00)
[2019-08-07] MEDS ORDERED: [UNRECOGNIZED DRUG - OTHER] IV ONE ×5 (16:00)
[2019-08-07] MEDS ORDERED: THIAMINE HCL IV ONE ×5 (16:00)
--- NOTE | 2019-08-07 16:02 | Diagnostic Imaging Report ---
Examination: Single AP view of the chest. COMPARISON: None. INDICATION: Altered mental status DISCUSSION: Lines/tubes: None. Lungs: The lungs are well inflated and clear. No pneumonia or pulmonary edema. Pleura: No pleural effusion or pneumothorax. Heart and mediastinum: The heart and the mediastinum are unremarkable. Bones and soft tissues: No acute bony abnormalities. IMPRESSION: 1. No acute cardiopulmonary abnormalities. Signed by: Dr. Zhao Campos M.D. on 08/07/2019 4:00 PM
--- NOTE | 2019-08-07 16:21 | Diagnostic Imaging Report ---
History: AMS Comparison studies: None Technique: Axial images were obtained from the skull base to the vertex. Coronal and sagittal reconstructions obtained from the axial data. Dose modulation, iterative reconstruction, and/or weight based adjustment of the mA/kV was utilized to reduce the radiation dose to as low as reasonably achievable. Findings: Scalp/skull: No abnormalities. No fractures, blastic or lytic lesions. Extra-axial spaces: No masses. No fluid collections. Brain sulci: Appropriate for age. Ventricles: Normal in size and configuration. No hydrocephalus. Parenchyma: No abnormal densities. No masses, hemorrhage, acute or chronic cortical vascular insults. Sellar/suprasellar region: No abnormalities Craniocervical junction: Patent foramen magnum. No Chiari one malformation. IMPRESSION: No abnormalities . Signed by: DR Chad Salazar M.D. on 08/07/2019 4:19 PM
[2019-08-07] MEDS ORDERED: POTASSIUM CHLORIDE 10MEQ/100ML 300 ML IV ONE (18:15)
[2019-08-07] MEDS ORDERED: PIPER-TAZ 3.375 GM 50 ML IV ONE (18:15)
[2019-08-07] MEDS ORDERED: LORAZEPAM INJ 2 MG/ML VIAL IV PRN (18:15)
[2019-08-07] MEDS ORDERED: ONDANSETRON HCL INJ 2MG/ML 2ML 2 MG/ML VIAL IV NR (18:30)
[2019-08-07] MEDS: ONDANSETRON HCL INJ 2MG/ML 2ML 2 MG/ML VIAL IV PRN (18:35)
[2019-08-07 18:46] LABS: BENZODIAZEPINES SCREEN,URINE POSITIVE (NEGATIVE)
[2019-08-07 18:48] LABS: AMPHETAMINES SCREEN,URINE NEGATIVE (NEGATIVE); PHENCYCLIDINE SCREEN,URINE NEGATIVE (NEGATIVE)
[2019-08-07 18:51] LABS: CLARITY,URINE CLEAR (CLEAR); COLOR,URINE YELLOW (YELLOW); LEUKOCYTE ESTERASE ,URINE NEGATIVE (NEGATIVE); PREGNANCY TEST, URINE NEGATIVE (NEGATIVE)
[2019-08-07 18:52] LABS: BILIRUBIN,URINE NEGATIVE (NEGATIVE); KETONES,URINE 2+ (NEGATIVE); NITRITE,URINE NEGATIVE (NEGATIVE); PROTEIN,URINE DIPSTICK 2+ (NEGATIVE); URINE UROBILINOGEN 0.2 mg/dL (0.2 - 1)
[2019-08-07 18:59] LABS: WBC,URINE (MAN) 0-5 /HPF (0-5)
[2019-08-07 19:00] LABS: BACTERIA,URINE FEW /HPF; EPITHELIAL CELLS,URINE MODERATE /LPF
[2019-08-07] MEDS ORDERED: KETOROLAC TROMETHAMINE 30 MG/ML VIAL IM PRN (19:00)
--- NOTE | 2019-08-07 19:19 | NUR ---
pt c fever 99.8 ax. blankets x [address] simon informed. tylenol po ordered.
[2019-08-07] MEDS ORDERED: ACETAMINOPHEN 325 MG TAB PO PRN (19:30)
[2019-08-07] MEDS: KCL 20MEQ/.9 SOD CHL 1,000 ML IV SCH (19:33)
[2019-08-07] MEDS ORDERED: SODIUM CHLORIDE 0.9% 500ML 500 ML ONE (19:34)
--- NOTE | 2019-08-07 20:30 | NUR ---
pt unable to tolerate tylenol po due to nausea. dr henry mora.
--- NOTE | 2019-08-07 21:06 | NUR ---
spoke to precision aircraft systems assembler for dr figueroa informed of fever. informed that pt unable to tolerate po tylenol. tylenol pr ordered.
[2019-08-07] MEDS: ACETAMINOPHEN 650 MG SUPP PR PRN (21:20)
--- NOTE | 2019-08-07 21:20 | NUR ---
pt medicated per orders c tylenol supp per for fever.
[2019-08-07] MEDS ORDERED: BUSPIRONE HCL7.5 MG PO (21:27)
[2019-08-07] MEDS ORDERED: ESCITALOPRAM OX10 MG PO (21:27)
[2019-08-08] VITALS (11 sets, daily range): BP systolic 136–161; BP diastolic 81–98
[2019-08-08 00:15] LABS: BASOPHILS % 0.4 % (0.0-1.0); HEMATOCRIT 36.6 % (34.2-44.1); HEMOGLOBIN 12.4 g/dL (12.0-16.0); LYMPHOCYTES % 10.1 % (18.0-39.1); MEAN CORPUSCULAR HGB CONC 33.9 g/dL (31-35); MEAN CORPUSCULAR VOLUME 91.5 fL (81-99); MONOCYTES # (AUTO) 0.7 (0.2-0.8); MONOCYTES % 6.3 % (4.4-11.3); NEUTROPHILS # (AUTO) 8.4 (2.1-6.9); NEUTROPHILS % 82.1 % (38.7-80.0); PLATELET COUNT 375 x10e3/uL (140-360); RED CELL DISTRIBUTION WIDTH 13.4 % (11.7-14.4)
[2019-08-08 00:49] LABS: ALANINE AMINOTRANSFERASE 36 IU/L (0-55); ALBUMIN 3.5 g/dL (3.5-5.0); ALBUMIN/GLOBULIN RATIO 1.1 (0.8-2.0); ALKALINE PHOSPHATASE 66 IU/L (40-150); BLOOD UREA NITROGEN 7 mg/dL (7-26); BUN/CREATININE RATIO 10 (6-25); CALCIUM 8.1 mg/dL (8.4-10.2); CARBON DIOXIDE 25 mmol/L (22-29); CHLORIDE 101 mmol/L (98-107); CREATINE KINASE MB < 1.00 ng/mL (0-4.3); CREATININE, SERUM 0.71 mg/dL (0.57-1.11); EST GLOMERULAR FILTRATION RATE > 60 ML/MIN (60-); GLUCOSE 100 mg/dL (74-118); SODIUM 140 mmol/L (136-145)
[2019-08-08] MEDS: CHLORDIAZEPOXIDE HCL 25 MG CAP PO SCH ×5 (01:31→23:40)
[2019-08-08] MEDS: KCL 20MEQ/.9 SOD CHL 1,000 ML IV SCH (01:31)
[2019-08-08] MEDS: ACETAMINOPHEN 650 MG SUPP PR PRN (05:45)
[2019-08-08 07:38] LABS: CREATINE KINASE MB 0.8 ng/mL (0-5.0)
[2019-08-08] MEDS ORDERED: CHLORASEPTIC SPRAY 177 ML BTL MM PRN (08:00)
[2019-08-08] MEDS ORDERED: HYDRALAZINE HCL 20 MG/ML VIAL IV PRN (08:00)
[2019-08-08] MEDS ORDERED: NON-FORMULARY MEDICATION (Buspirone Hcl 7.5 MG) PO SCH (09:00)
[2019-08-08] MEDS: LISINOPRIL 10 MG TAB PO SCH (09:14)
[2019-08-08] MEDS: ESCITALOPRAM OXALATE 10 MG TAB PO SCH (09:14)
[2019-08-08] MEDS: BUSPIRONE HCL 5 MG TAB PO SCH ×2 (09:14→16:08)
[2019-08-08] MEDS: MULTIVITAMINS- 12 INJECTION 10 ML, FOLIC ACID MDV 5 MG, THIAMINE HCL INJ 100 MG in SODI... IV SCH ×2 (09:14→18:08)
[2019-08-08] MEDS: PANTOPRAZOLE 40 MG 10ML VIAL IV SCH ×2 (09:14→16:08)
[2019-08-08] MEDS: ONDANSETRON HCL INJ 2MG/ML 2ML 2 MG/ML VIAL IV PRN (09:15)
[2019-08-08 14:55] LABS: CREATINE KINASE MB 0.8 ng/mL (0-5.0)
[2019-08-08] MEDS: SODIUM CHLORIDE 0.9% 1000ML 1,000 ML IV PRN (20:19)
[2019-08-09] VITALS (9 sets, daily range): BP systolic 131–161; BP diastolic 77–101
[2019-08-09 05:44] LABS: BASOPHILS # (AUTO) 0.1 (0.0-0.1); BASOPHILS % 1.4 % (0.0-1.0); EOSINOPHILS % 0.6 % (0.0-6.0); HEMATOCRIT 38.8 % (34.2-44.1); HEMOGLOBIN 12.9 g/dL (12.0-16.0); LYMPHOCYTES # (AUTO) 1.6 (1.0-3.2); LYMPHOCYTES % 24.8 % (18.0-39.1); MEAN CORPUSCULAR HEMOGLOBIN 30.3 pg (28-32); MEAN CORPUSCULAR HGB CONC 33.2 g/dL (31-35); MEAN CORPUSCULAR VOLUME 91.1 fL (81-99); MONOCYTES # (AUTO) 0.5 (0.2-0.8); MONOCYTES % 7.2 % (4.4-11.3); NEUTROPHILS # (AUTO) 4.1 (2.1-6.9); NEUTROPHILS % 65.2 % (38.7-80.0); PLATELET COUNT 337 x10e3/uL (140-360); RED BLOOD COUNT 4.26 x10e6/uL (3.6-5.1); RED CELL DISTRIBUTION WIDTH 12.8 % (11.7-14.4)
[2019-08-09] MEDS: METOCLOPRAMIDE HCL 10 MG/2ML VIAL IV SCH ×3 (05:56→18:26)
[2019-08-09] MEDS: CHLORDIAZEPOXIDE HCL 25 MG CAP PO SCH ×3 (05:56→18:26)
[2019-08-09 06:18] LABS: ALANINE AMINOTRANSFERASE 29 IU/L (0-55); ALBUMIN 3.1 g/dL (3.5-5.0); ALKALINE PHOSPHATASE 60 IU/L (40-150); ANION GAP 14.9 mmol/L (8-16); BLOOD UREA NITROGEN 5 mg/dL (7-26); BUN/CREATININE RATIO 9 (6-25); CALCIUM 8.7 mg/dL (8.4-10.2); CARBON DIOXIDE 26 mmol/L (22-29); CHLORIDE 97 mmol/L (98-107); CREATININE, SERUM 0.57 mg/dL (0.57-1.11); EST GLOMERULAR FILTRATION RATE > 60 ML/MIN (60-); GLUCOSE 87 mg/dL (74-118); MAGNESIUM 1.6 MG/DL (1.3-2.1); SODIUM 135 mmol/L (136-145)
[2019-08-09 06:20] LABS: POTASSIUM 2.9 mmol/L (3.5-5.1)
[2019-08-09] MEDS ORDERED: POTASSIUM CHLORIDE 20 MEQ TAB CR PO STA (06:22)
[2019-08-09] MEDS ORDERED: POTASSIUM CHLORIDE 20 MEQ TAB CR PO ONE (06:50)
[2019-08-09] MEDS: ESCITALOPRAM OXALATE 10 MG TAB PO SCH (08:52)
[2019-08-09] MEDS: BUSPIRONE HCL 5 MG TAB PO SCH ×2 (08:52→18:26)
[2019-08-09] MEDS: PANTOPRAZOLE 40 MG 10ML VIAL IV SCH ×2 (08:52→18:26)
[2019-08-09] MEDS: LISINOPRIL 10 MG TAB PO SCH (08:53)
[2019-08-09] MEDS: MULTIVITAMINS- 12 INJECTION 10 ML, FOLIC ACID MDV 5 MG, THIAMINE HCL INJ 100 MG in SODI... IV SCH (09:30)
[2019-08-09] MEDS: SODIUM CHLORIDE 0.9% 1000ML 1,000 ML IV PRN (21:35)
[2019-08-10] VITALS (9 sets, daily range): BP systolic 101–131; BP diastolic 56–85
[2019-08-10 05:08] LABS: BASOPHILS # (AUTO) 0.1 (0.0-0.1); BASOPHILS % 0.9 % (0.0-1.0); EOSINOPHILS # (AUTO) 0.2 (0.0-0.4); EOSINOPHILS % 2.1 % (0.0-6.0); HEMATOCRIT 37.9 % (34.2-44.1); HEMOGLOBIN 12.5 g/dL (12.0-16.0); LYMPHOCYTES # (AUTO) 1.9 (1.0-3.2); LYMPHOCYTES % 24.8 % (18.0-39.1); MEAN CORPUSCULAR HEMOGLOBIN 30.5 pg (28-32); MEAN CORPUSCULAR VOLUME 92.4 fL (81-99); MONOCYTES # (AUTO) 0.5 (0.2-0.8); NEUTROPHILS # (AUTO) 4.9 (2.1-6.9); NEUTROPHILS % 65.7 % (38.7-80.0); PLATELET COUNT 301 x10e3/uL (140-360); RED CELL DISTRIBUTION WIDTH 12.6 % (11.7-14.4)
[2019-08-10 05:36] LABS: ANION GAP 12.4 mmol/L (8-16); BLOOD UREA NITROGEN 7 mg/dL (7-26); BUN/CREATININE RATIO 13 (6-25); CALCIUM 8.3 mg/dL (8.4-10.2); CARBON DIOXIDE 26 mmol/L (22-29); CHLORIDE 102 mmol/L (98-107); CREATININE, SERUM 0.53 mg/dL (0.57-1.11); EST GLOMERULAR FILTRATION RATE > 60 ML/MIN (60-); GLUCOSE 95 mg/dL (74-118); MAGNESIUM 1.5 MG/DL (1.3-2.1); POTASSIUM 3.4 mmol/L (3.5-5.1); SODIUM 137 mmol/L (136-145)
[2019-08-10] MEDS: METOCLOPRAMIDE HCL 10 MG/2ML VIAL IV SCH ×2 (05:39)
[2019-08-10] MEDS: CHLORDIAZEPOXIDE HCL 25 MG CAP PO SCH ×5 (05:39→23:04)
[2019-08-10] MEDS: ESCITALOPRAM OXALATE 10 MG TAB PO SCH (08:55)
[2019-08-10] MEDS: BUSPIRONE HCL 5 MG TAB PO SCH ×2 (08:55→17:00)
[2019-08-10] MEDS: PANTOPRAZOLE 40 MG 10ML VIAL IV SCH (08:55)
[2019-08-10] MEDS: LISINOPRIL 10 MG TAB PO SCH (08:57)
[2019-08-10] MEDS: MULTIVITAMINS- 12 INJECTION 10 ML, FOLIC ACID MDV 5 MG, THIAMINE HCL INJ 100 MG in SODI... IV SCH (09:00)
[2019-08-10] MEDS: PANTOPRAZOLE SOD 40 MG TABEC PO SCH ×2 (11:20→23:04)
[2019-08-10] MEDS: METOCLOPRAMIDE HCL 10 MG TAB PO SCH ×3 (11:20→23:04)
--- NOTE | 2019-08-10 12:54 | NUR ---
RECD PT FROM ICU VIA W/C AAOX3,DENIES PAINN,IV INFUSING TO RT FA 20 GAUGE,
--- NOTE | 2019-08-10 17:57 | NUR ---
PT UP IN BED ,DENIES PAIN ,NO DISTRESS NOTED
[2019-08-10] MEDS ORDERED: POTASSIUM CHLORIDE 10MEQ EA PO NR (18:45)
--- NOTE | 2019-08-10 19:11 | NUR ---
Received bedside report from day nurse. Patient awake and sitting up in bed, no s/s of distress or c/o pain at this time. All safety measures in place. Will continue to monitor.
[2019-08-10] MEDS: SODIUM CHLORIDE 0.9% 1000ML 1,000 ML IV PRN (23:04)
[2019-08-11 00:10] VITALS: BP 133/78
--- NOTE | 2019-08-11 01:31 | NUR ---
Dr. Giovanna Singh here to see patient. Says patient is okay to DC home and follow up outpatient.
[2019-08-11 04:10] VITALS: BP 162/98
[2019-08-11] MEDS: METOCLOPRAMIDE HCL 10 MG TAB PO SCH ×2 (05:32→12:14)
[2019-08-11] MEDS: CHLORDIAZEPOXIDE HCL 25 MG CAP PO SCH ×2 (05:32→12:14)
[2019-08-11 05:48] LABS: BASOPHILS % 0.6 % (0.0-1.0); EOSINOPHILS # (AUTO) 0.2 (0.0-0.4); EOSINOPHILS % 2.9 % (0.0-6.0); HEMATOCRIT 36.5 % (34.2-44.1); HEMOGLOBIN 12.3 g/dL (12.0-16.0); LYMPHOCYTES # (AUTO) 1.5 (1.0-3.2); LYMPHOCYTES % 23.8 % (18.0-39.1); MEAN CORPUSCULAR HEMOGLOBIN 30.7 pg (28-32); MEAN CORPUSCULAR HGB CONC 33.7 g/dL (31-35); MONOCYTES # (AUTO) 0.4 (0.2-0.8); MONOCYTES % 5.9 % (4.4-11.3); NEUTROPHILS # (AUTO) 4.1 (2.1-6.9); PLATELET COUNT 273 x10e3/uL (140-360); RED BLOOD COUNT 4.01 x10e6/uL (3.6-5.1); RED CELL DISTRIBUTION WIDTH 12.5 % (11.7-14.4)
[2019-08-11 06:04] LABS: ANION GAP 15.3 mmol/L (8-16); BLOOD UREA NITROGEN 6 mg/dL (7-26); BUN/CREATININE RATIO 11 (6-25); CALCIUM 8.5 mg/dL (8.4-10.2); CARBON DIOXIDE 26 mmol/L (22-29); CHLORIDE 102 mmol/L (98-107); CREATININE, SERUM 0.56 mg/dL (0.57-1.11); EST GLOMERULAR FILTRATION RATE > 60 ML/MIN (60-); GLUCOSE 107 mg/dL (74-118); POTASSIUM 3.3 mmol/L (3.5-5.1); SODIUM 140 mmol/L (136-145)
--- NOTE | 2019-08-11 07:00 | NUR ---
Bedside report given to day nurse. Patient resting in bed, no s/s of distress at this time. All safety measures in place.
--- NOTE | 2019-08-11 07:30 | NUR ---
The pt. was received post bedside rounding and post observation of labs noted that the pt's potassium is 3.3 and a call was made to the PA. for orders.
[2019-08-11 07:43] VITALS: BP 138/79
[2019-08-11] MEDS ORDERED: MAGNESIUM SULFATE 2GM/50ML 50 ML IV ONE (08:45)
[2019-08-11] MEDS: BUSPIRONE HCL 5 MG TAB PO SCH (08:58)
[2019-08-11] MEDS: LISINOPRIL 10 MG TAB PO SCH (08:59)
[2019-08-11] MEDS: ESCITALOPRAM OXALATE 10 MG TAB PO SCH (08:59)
[2019-08-11 09:00] VITALS: BP 144/62
[2019-08-11] MEDS ORDERED: ONDANSETRON HCL 4 MG ORAL DISINTEGRATING TAB PO PRN (09:30)
[2019-08-11] MEDS ORDERED: POTASSIUM CHLORIDE 20 MEQ TAB CR PO NR (10:00)
[2019-08-11] MEDS: PANTOPRAZOLE SOD 40 MG TABEC PO SCH (10:46)
[2019-08-11] MEDS: MULTIVITAMINS- 12 INJECTION 10 ML, FOLIC ACID MDV 5 MG, THIAMINE HCL INJ 100 MG in SODI... IV SCH (10:46)
[2019-08-11 11:34] VITALS: BP 136/81
--- NOTE | 2019-08-11 12:18 | NUR ---
The pt's iv was leaking and it was dc'd and attempt times 2 unsuccessful and will seek assistance.
[2019-08-11 16:02] VITALS: BP 139/74
[2019-08-11] MEDS ORDERED: PROTONIX40 MG/ML PO (17:48)
[2019-08-11] MEDS ORDERED: METOCLOPRAMIDE10 MG PO (17:48)
[2019-08-11] MEDS ORDERED: MAGNESIUM OXID240 MG PO (18:00)
--- NOTE | 2019-08-11 19:11 | NUR ---
Received bedside report from day nurse. Patient ambulating around room, no s/s of distress or c/o pain at this time. All safety measures in place. Canelo Palacios DOUBLE END TENONER OPERATOR on unit, says patient is okay to discharge home.
--- NOTE | 2019-08-11 20:15 | NUR ---
Patient discharged home. In stable condition, no s/s of distress.
--- NOTE | 2019-08-12 09:13 | Discharge Summary ---
CONSULTING PHYSICIAN: Dr. Low Singh. PERTINENT HISTORY AND PHYSICAL FINDINGS: Chief complaint is nausea and vomiting. HISTORY OF PRESENT ILLNESS: This 49-year-old female admitted with complaints of nausea, vomiting for three days prior to admission. She admitted to alcohol abuse and she drank five bottles of last week. She was admitted with similar symptoms in June 2019 and they improved with a proton pump inhibitor. She denied any abdominal pain, fever, or diarrhea at that time. PAST MEDICAL HISTORY: Alcohol abuse, hypertension, and anxiety. PAST SURGICAL HISTORY: Hysterectomy. FAMILY HISTORY: Mother and father both had diabetes and cerebrovascular accident. SOCIAL HISTORY: Alcohol abuse. Denied tobacco or illicit drugs. ALLERGIES: NO KNOWN ALLERGIES. ADMITTING DIAGNOSES: 1. Alcohol abuse. 2. Hypertension. 3. Anxiety. 4. Hypokalemia. 5. Possible gastritis. DISCHARGE DIAGNOSES: 1. Alcohol abuse. 2. Recurrent nausea and vomiting, resolved. 3. Mild upper abdominal pain, resolved. 4. Gastritis with reflux. 5. Anxiety. 6. Acute hypomagnesemia. 7. Acute hypokalemia. LABORATORY DATA: On admission WBCs 13.82, hemoglobin 15.6, hematocrit 45.1, platelets 495,000. PT 12.1, INR 0.85. Sodium 140, potassium 4.0, chloride 101, CO2 25, anion gap 18, BUN 7, creatinine 0.71, estimated GFR greater than 60. Glucose 100, calcium 8.1, magnesium 2.0, total bilirubin 0.6, AST 33, ALT 36, alkaline phosphatase 66, total protein 6.8, albumin 3.5. Troponin I is negative. Toxicology screen showed ethyl alcohol 296.6, positive for benzodiazepine. Brain CT showed no abnormalities. Chest x-ray showed no acute cardiopulmonary abnormalities. Per Dr. Singh with GI diagnoses listed included recurrent nausea and vomiting, alcohol abuse, and anxiety as well as mild upper abdominal pain. Reglan was added to Protonix PPI. The patient received banana bag, Librium, and Ativan as needed for the alcohol abuse. Potassium was as low as 2.9 and repleted. BuSpar and Lexapro were used for anxiety. EGD was considered, however, not needed. Magnesium level 1.5 on August 10, repleted today with 2 g of magnesium sulfate IV. The patient was also given 40 mEq of potassium chloride orally after the magnesium infusion. Her phosphorus level today August 11 was 4.0. Send the patient home on magnesium oxide 400 mg p.o. b.i.d. The patient will follow up with Dr. Singh in 1 to 2 weeks. She is to establish a primary care physician and follow up with them in 1 to 2 weeks. [employer] provided a packet of information on community resources for assistance with low to no income to the patient earlier in her stay. Continue regular diet. She is eating well. Currently denies abdominal pain, nausea, vomiting, diarrhea. Last bowel movement was yesterday. Activity level as tolerated. We will also send her home on Protonix 40 mg p.o. q.12 hours, metoclopramide 10 mg p.o. q.6 hours as well as her home medications, which includes p.r.n. Zofran. Dictated by Canelo Palacios NP MD SHANIKA Mcbride/CHAYOL /[id number]
== END 2019-08-11 20:07 | disposition home or self-care (01) | DRG 897 ==
LOC: ER 14:20 → ERHOLD 18:20 → ICU 08-08 03:08 → OBSVTOIN 08-09 11:59 → MED/SURG3 08-10 12:46
PROVIDERS: ADMIT Internal Medicine; ATTEND Internal Medicine
DX: F10.220 Alcohol dependence with intoxication, uncomplicated (principal); E87.6 Hypokalemia; Y90.8 Blood alcohol level of 240 mg/100 ml or more; F41.9 Anxiety disorder, unspecified; I10 Essential (primary) hypertension; Z83.3 Family history of diabetes mellitus; Z82.3 Family history of stroke; K29.70 Gastritis, unspecified, without bleeding; K21.9 Gastro-esophageal reflux disease without esophagitis; E83.42 Hypomagnesemia
CPT/HCPCS: 36415; 70450; 71045; 80048; 80053; 80307; 80320; 80329; 81001; 81025; 82550; 82553; 83690; 83735; 84100; 84484; 84702; 85025; 85610; 85730; 93005; 99285; G0378; J0360; J2060; J2405; J2543; J2765; J3411; J3475; J3480; J7030; J7040